=== PATIENT | female | born 1955 | race Caucasian/White ===

== ENCOUNTER 2016-06-20 13:56 | Emergency (ER) | payer OTHER ==
[~2016-06-20 13:56] MED LIST: ACET50TA PO; CLOP75TA2 PO; GLIM2TA PO; IBUP600T26 PO; LIPI10TA PO; METF500T PO; PERC7.5T12 PO; VENTAER IN; flonase nasal spray; nexium
--- NOTE | 2016-06-20 15:31 | EDDOCDS ---
Physician Documentation [facility] Name: Rosalva Rushing Age: 60 yrs Sex: Female : 1955 Arrival Date: 06/20/2016 Time: 13:56 Bed 10 Private MD: Disposition: 06/20/16 15:13 Patient has left against medical advice. Impression: Procedure and treatment not carried out due to patient leaving prior to being seen by health care provider. - Patients states they are going to Home/Self Care. - Condition is Good. Medication Reconciliation, Local Pharmacy Hours form. Follow up: Emergency Department; When: Call to arrange an appointment; Reason: Continuance of care. - Problem is an ongoing problem. - Symptoms have improved. - Notes: Patient left prior to MD evaluation. I offered to see her immediately, the patient refused to stay for lab work, EKG, or HPI or examination. Historical: - Allergies: Aspirin (Swelling); PENICILLINS (Swelling); - Home Meds: 1. atenolol 25 mg Oral tab 1 tab once daily 2. atorvastatin 20 mg oral tab 1 tab once daily 3. metformin 1,000 mg Oral tab 1 tab daily 4. Plavix 75 mg Oral tab 1 tab once daily - PMHx: Diabetes - NIDDM: uncontrolled; Hypercholesterolemia; Myocardial infarction; Vertigo; - PSHx: Cholecystectomy; Appendectomy; Cataract Surgery- Bilateral; Tubal ligation; - Social history: Smoking status: Patient uses tobacco products, light tobacco smoker. No barriers to communication noted. - : The pt / caregiver states he / she is on anticoagulants: Plavix. Home medication list is obtained from the patient. - Exposure Risk Screening:: None identified. Vital Signs: 06/20 14:40 Weight 105.23 kg / 231.99 lbs; Height 5 ft. 8 in. (172.72 cm); mb9 14:42 BP 139 / 68; Pulse 87; Resp 17; Temp 97.6(TE); Pulse Ox 99% ; mb9 14:40 Body Mass Index 35.27 (105.23 kg, 172.72 cm) mb9 MDM: 14:59 IV Saline Lock ordered. fg 14:59 Orthostatic VS ordered. fg 14:59 NS 0.9% 500 ml IV at bolus once ordered. fg 14:59 CBC with Diff Ordered. EDMS 14:59 Basic Metabolic Profile Ordered. EDMS 15:00 ECG WITH READING ER PHYS+CARDIAG ordered. EDMS Signatures: Dispatcher [employer] EDMS Estevan DaleRN RN mb9 Casandra Pop MD MD fg MTDD
--- NOTE | 2016-06-20 15:31 | EDDOCDS ---
Nurse's Notes [facility] Name: Rosalva Rushing Age: 60 yrs Sex: Female : 1955 Arrival Date: 06/20/2016 Time: 13:56 Bed 10 Private MD: Diagnosis: Procedure and treatment not carried out due to patient leaving prior to being seen by health care provider Presentation: 06/20 14:10 Presenting complaint: Patient states: "I went to get up and call an ambulance for my mb9 grandson and I stood up and got dizzy and my eyes went fuzzy". Suicide/Homicide risk assessment- the patient denies having any suicidal and/or homicidal ideations and does not present with any other emotional, behavioral or mental health complaints. Status: Patient is not a family services worker or dependent. Transition of care: patient was not received from another setting of care. 14:10 Method Of Arrival: Ambulance mb9 14:10 Acuity: ALANNA Level 3 mb9 Triage Assessment: 14:38 General: Appears obese, unkempt, Behavior is fussy. Pain: Denies pain. Pt Declines HIV mb9 testing. Cardiovascular: Heart tones S1 S2 present Pulses are 1+ in right radial artery and left radial artery. Respiratory: Airway is patent Respiratory effort is even, unlabored. Historical: - Allergies: Aspirin (Swelling); PENICILLINS (Swelling); - Home Meds: 1. atenolol 25 mg Oral tab 1 tab once daily 2. atorvastatin 20 mg oral tab 1 tab once daily 3. metformin 1,000 mg Oral tab 1 tab daily 4. Plavix 75 mg Oral tab 1 tab once daily - PMHx: Diabetes - NIDDM: uncontrolled; Hypercholesterolemia; Myocardial infarction; Vertigo; - PSHx: Cholecystectomy; Appendectomy; Cataract Surgery- Bilateral; Tubal ligation; - Social history: Smoking status: Patient uses tobacco products, light tobacco smoker. No barriers to communication noted. - : The pt / caregiver states he / she is on anticoagulants: Plavix. Home medication list is obtained from the patient. - Exposure Risk Screening:: None identified. Assessment: 15:27 General: When this RN went in to start pt's IV and draw blood pt states, "That's it I mb9 want to leave.". . Vital Signs: 14:40 Weight 105.23 kg; Height 5 ft. 8 in. (172.72 cm); mb9 14:42 BP 139 / 68; Pulse 87; Resp 17; Temp 97.6(TE); Pulse Ox 99% ; mb9 14:40 Body Mass Index 35.27 (105.23 kg, 172.72 cm) mb9 Vitals: 14:42 Log In Time N/A - ambulance arrival. mb9 ED Course: 13:57 Patient visited by Therese Coffey PCA. ar3 13:57 Asia Ross,RN is Primary Nurse. ar3 13:57 Patient moved to Waiting ar3 13:57 Patient moved to 10 ar3 14:33 Triage Initiated mb9 14:36 Casandra Pop MD is Attending Physician. fg 14:53 Patient visited by Casandra Pop MD. fg Order Results: There are currently no results for this order. Outcome: 15:13 Patient left against medical advice. fg 15:29 LWOT With Intervention: feels better refusal of services form is completed and placed mb9 in pts record. Notification of LWOT status is reported to the Charge Nurse, the Sourcing Manager, the ED Provider. 15:30 Patient left the ED. mb9 Signatures: Therese Coffey PCA SHOT CORE DRILL OPERATOR ar3 Estevan Dale RN RN mb9 Casandra Pop MD MD fg MTDD
--- NOTE | 2016-06-22 16:31 | EDDOCDS ---
Physician Documentation [facility] Name: Rosalva Rushing Age: 60 yrs Sex: Female : 1955 Arrival Date: 06/20/2016 Time: 13:56 Bed 10 Private MD: Disposition: 06/20/16 15:13 Patient has left against medical advice. Impression: Procedure and treatment not carried out due to patient leaving prior to being seen by health care provider. - Patients states they are going to Home/Self Care. - Condition is Good. Medication Reconciliation, Local Pharmacy Hours form. Follow up: Emergency Department; When: Call to arrange an appointment; Reason: Continuance of care. - Problem is an ongoing problem. - Symptoms have improved. - Notes: Patient left prior to MD evaluation. I offered to see her immediately, the patient refused to stay for lab work, EKG, or HPI or examination. Historical: - Allergies: Aspirin (Swelling); PENICILLINS (Swelling); - Home Meds: 1. atenolol 25 mg Oral tab 1 tab once daily 2. atorvastatin 20 mg oral tab 1 tab once daily 3. metformin 1,000 mg Oral tab 1 tab daily 4. Plavix 75 mg Oral tab 1 tab once daily - PMHx: Diabetes - NIDDM: uncontrolled; Hypercholesterolemia; Myocardial infarction; Vertigo; - PSHx: Cholecystectomy; Appendectomy; Cataract Surgery- Bilateral; Tubal ligation; - Social history: Smoking status: Patient uses tobacco products, light tobacco smoker. No barriers to communication noted. - : The pt / caregiver states he / she is on anticoagulants: Plavix. Home medication list is obtained from the patient. - Exposure Risk Screening:: None identified. Vital Signs: 06/20 14:40 Weight 105.23 kg / 231.99 lbs; Height 5 ft. 8 in. (172.72 cm); mb9 14:42 BP 139 / 68; Pulse 87; Resp 17; Temp 97.6(TE); Pulse Ox 99% ; mb9 14:40 Body Mass Index 35.27 (105.23 kg, 172.72 cm) mb9 MDM: 14:59 IV Saline Lock ordered. fg 14:59 Orthostatic VS ordered. fg 14:59 NS 0.9% 500 ml IV at bolus once ordered. fg 14:59 CBC with Diff Ordered. EDMS 14:59 Basic Metabolic Profile Ordered. EDMS 15:00 ECG WITH READING ER PHYS+CARDIAG ordered. EDMS 15:50 Financial registration complete. [facility] 06/21 12:34 Refusal of Services was scanned into MEDHOST and attached to record. Signatures: Dispatcher [employer] EDMS Niecy Dsouza, Reg Reg gb Brit Fenton [facility] Estevan DaleRN RN mb9 Casandra Pop MD MD fg Chart Complete MTDD
--- NOTE | 2016-06-22 16:31 | EDDOCDS ---
Physician Documentation [facility] Name: Rosalva Rushing Age: 60 yrs Sex: Female : 1955 Arrival Date: 06/20/2016 Time: 13:56 Bed 10 Private MD: Disposition: 06/20/16 15:13 Patient has left against medical advice. Impression: Procedure and treatment not carried out due to patient leaving prior to being seen by health care provider. - Patients states they are going to Home/Self Care. - Condition is Good. Medication Reconciliation, Local Pharmacy Hours form. Follow up: Emergency Department; When: Call to arrange an appointment; Reason: Continuance of care. - Problem is an ongoing problem. - Symptoms have improved. - Notes: Patient left prior to MD evaluation. I offered to see her immediately, the patient refused to stay for lab work, EKG, or HPI or examination. Historical: - Allergies: Aspirin (Swelling); PENICILLINS (Swelling); - Home Meds: 1. atenolol 25 mg Oral tab 1 tab once daily 2. atorvastatin 20 mg oral tab 1 tab once daily 3. metformin 1,000 mg Oral tab 1 tab daily 4. Plavix 75 mg Oral tab 1 tab once daily - PMHx: Diabetes - NIDDM: uncontrolled; Hypercholesterolemia; Myocardial infarction; Vertigo; - PSHx: Cholecystectomy; Appendectomy; Cataract Surgery- Bilateral; Tubal ligation; - Social history: Smoking status: Patient uses tobacco products, light tobacco smoker. No barriers to communication noted. - : The pt / caregiver states he / she is on anticoagulants: Plavix. Home medication list is obtained from the patient. - Exposure Risk Screening:: None identified. Vital Signs: 06/20 14:40 Weight 105.23 kg / 231.99 lbs; Height 5 ft. 8 in. (172.72 cm); mb9 14:42 BP 139 / 68; Pulse 87; Resp 17; Temp 97.6(TE); Pulse Ox 99% ; mb9 14:40 Body Mass Index 35.27 (105.23 kg, 172.72 cm) mb9 MDM: 14:59 IV Saline Lock ordered. fg 14:59 Orthostatic VS ordered. fg 14:59 NS 0.9% 500 ml IV at bolus once ordered. fg 14:59 CBC with Diff Ordered. EDMS 14:59 Basic Metabolic Profile Ordered. EDMS 15:00 ECG WITH READING ER PHYS+CARDIAG ordered. EDMS 15:50 Financial registration complete. [facility] 06/21 12:34 Refusal of Services was scanned into MEDHOST and attached to record. Signatures: Dispatcher [employer] EDMS Niecy Dsouza, Reg Reg gb Brit Fenton [facility] Estevan DaleRN RN mb9 Casandra Pop MD MD fg Chart Complete MTDD
--- NOTE | 2016-06-22 16:31 | EDDOCDS ---
Nurse's Notes [facility] Name: Rosalva Rushing Age: 60 yrs Sex: Female : 1955 Arrival Date: 06/20/2016 Time: 13:56 Bed 10 Private MD: Diagnosis: Procedure and treatment not carried out due to patient leaving prior to being seen by health care provider Presentation: 06/20 14:10 Presenting complaint: Patient states: "I went to get up and call an ambulance for my mb9 grandson and I stood up and got dizzy and my eyes went fuzzy". Suicide/Homicide risk assessment- the patient denies having any suicidal and/or homicidal ideations and does not present with any other emotional, behavioral or mental health complaints. Status: Patient is not a cooler servicer or dependent. Transition of care: patient was not received from another setting of care. 14:10 Method Of Arrival: Ambulance mb9 14:10 Acuity: ALANNA Level 3 mb9 Triage Assessment: 14:38 General: Appears obese, unkempt, Behavior is fussy. Pain: Denies pain. Pt Declines HIV mb9 testing. Cardiovascular: Heart tones S1 S2 present Pulses are 1+ in right radial artery and left radial artery. Respiratory: Airway is patent Respiratory effort is even, unlabored. Historical: - Allergies: Aspirin (Swelling); PENICILLINS (Swelling); - Home Meds: 1. atenolol 25 mg Oral tab 1 tab once daily 2. atorvastatin 20 mg oral tab 1 tab once daily 3. metformin 1,000 mg Oral tab 1 tab daily 4. Plavix 75 mg Oral tab 1 tab once daily - PMHx: Diabetes - NIDDM: uncontrolled; Hypercholesterolemia; Myocardial infarction; Vertigo; - PSHx: Cholecystectomy; Appendectomy; Cataract Surgery- Bilateral; Tubal ligation; - Social history: Smoking status: Patient uses tobacco products, light tobacco smoker. No barriers to communication noted. - : The pt / caregiver states he / she is on anticoagulants: Plavix. Home medication list is obtained from the patient. - Exposure Risk Screening:: None identified. Assessment: 15:27 General: When this RN went in to start pt's IV and draw blood pt states, "That's it I mb9 want to leave.". . Vital Signs: 14:40 Weight 105.23 kg; Height 5 ft. 8 in. (172.72 cm); mb9 14:42 BP 139 / 68; Pulse 87; Resp 17; Temp 97.6(TE); Pulse Ox 99% ; mb9 14:40 Body Mass Index 35.27 (105.23 kg, 172.72 cm) mb9 Vitals: 14:42 Log In Time N/A - ambulance arrival. mb9 ED Course: 13:57 Patient visited by Therese Coffey PCA. ar3 13:57 Asia Ross,RN is Primary Nurse. ar3 13:57 Patient moved to Waiting ar3 13:57 Patient moved to 10 ar3 14:33 Triage Initiated mb9 14:36 Casandra Pop MD is Attending Physician. fg 14:53 Patient visited by Casandra Pop MD. fg 06/21 12:34 Refusal of Services was scanned into [employer] and attached to record. gb Attachments: 12:34 Refusal of Services gb Order Results: Outcome: 06/20 15:13 Patient left against medical advice. fg 15:29 LWOT With Intervention: feels better refusal of services form is completed and placed mb9 in pts record. Notification of LWOT status is reported to the Charge Nurse, the Product Support Manager, the ED Provider. 15:30 Patient left the ED. mb9 Signatures: Niecy Dsouza, Reg Reg gb Therese Coffey PCA PCA ar3 Estevan Dale,RN RN mb9 Casandra Pop MD MD fg Chart Complete MTDD
== END 2016-06-20 15:30 | disposition left against medical advice (07) ==
LOC: M ED 13:56
DX: Z53.21 Procedure and treatment not carried out due to patient leaving prior to being seen by health care provider (principal)

== ENCOUNTER 2016-07-10 13:48 | Emergency (ER) | payer OTHER ==
[~2016-07-10] VITALS: Ht 172.7 cm; Wt 103.4 kg
[2016-07-10] MEDS ORDERED: LEVO75TA4 PO (14:00)
[2016-07-10] MEDS ORDERED: PLAV75TA38 PO (14:01)
[2016-07-10] MEDS ORDERED: AMLO2.5T PO (14:01)
[2016-07-10] MEDS ORDERED: ATOR1TAB21 PO (14:02)
[2016-07-10] MEDS ORDERED: ATEN25TA PO (14:02)
[2016-07-10 17:18] LABS: BASO % 0.4 % (0.0-1.0); EOS # 0.1 K/mm3 (0.0-0.50); EOS % 1.1 % (0.0-3.0); LARGE UNSTAINED CELL # 0.2 K/mm3 (0.0-0.4); LARGE UNSTAINED CELL % 2.9 % (0.0-4.0); LYMPH # 3.2 K/mm3 (1.5-4.5); LYMPH % 42.8 % (24.0-44.0); MEAN CORPUSCULAR HEMOGLOBIN 31.8 pg (27.0-33.0); MEAN CORPUSCULAR HGB CONC 33.3 g/dl (32.0-36.5); MEAN CORPUSCULAR VOLUME 95.5 fl (80.0-96.0); MONO # 0.3 K/mm3 (0.0-0.8); MONO % 3.9 % (0.0-5.0); NEUTROPHILS # 3.6 K/mm3 (1.8-7.7); NEUTROPHILS % 48.9 % (36.0-66.0); PLATELET COUNT, AUTOMATED 200 k/mm3 (150-450); RED CELL DISTRIBUTION WIDTH 12.6 % (11.5-14.5); WHITE BLOOD COUNT 7.4 K/mm3 (4.0-10.0)
[2016-07-10 17:42] LABS: ALBUMIN/GLOBULIN RATIO 0.89 (1.00-1.93); ALKALINE PHOSPHATASE 103 U/L (45-117); ALT/SGPT 29 U/L (12-78); ANION GAP 7 MEQ/L (8-16); AST/SGOT 22 U/L (15-37); BILIRUBIN,DIRECT 0.2 MG/DL (0.0-0.2); BILIRUBIN,TOTAL 0.5 MG/DL (0.2-1.0); BLOOD UREA NITROGEN 10 MG/DL (7-18); CALCIUM LEVEL 9.3 MG/DL (8.8-10.2); CARBON DIOXIDE LEVEL 29 MEQ/L (21-32); CHLORIDE LEVEL 109 MEQ/L (98-107); CREATININE FOR GFR 0.85 MG/DL (0.55-1.02); GLOMERULAR FILTRATION RATE > 60.0 (>45); GLUCOSE, FASTING 92 MG/DL (80-110); POTASSIUM SERUM 4.1 MEQ/L (3.5-5.1); SODIUM LEVEL 145 MEQ/L (136-145); TOTAL PROTEIN 8.5 GM/DL (6.4-8.2)
[2016-07-10 18:48] VITALS: BP 118/67
--- NOTE | 2016-07-11 10:18 | REP ---
REASON: Weight loss and nausea. COMPARISON: 10/20/2015 TWO-VIEW CHEST: COMPARISON: No priors. FINDINGS: The superior mediastinal structures are midline. The cardiac silhouette is unremarkable in size, shape, and position. The diaphragmatic surfaces of the lungs are regular, and the costophrenic angles are clear. The pulmonary mejias are clear. The imaged osseous structures are intact. IMPRESSION: There is no acute cardiopulmonary disease. No change from the prior exam. Signed by Jacob Eastman DO 07/11/2016 10:28 A
--- NOTE | 2016-07-11 10:19 | REP ---
REASON FOR EXAM: Weight loss and nausea. PRIORS: None. Mild asymmetric hip joint spaces are present without prominent marginal osteophytosis, fracture, or dislocation. There is minimal bilateral buttressing. There are degenerative changes seen involving the imaged portion of the spine and sacroiliac joints. IMPRESSION: Chronic changes. Signed by Jacob Eastman DO 07/11/2016 10:28 A
--- NOTE | 2016-07-11 10:21 | REP ---
REASON: Weight loss and nausea. FINDINGS: KUB shows the intestinal gas pattern to be nonspecific. The organ silhouettes insofar as delineated are unremarkable. There is no evidence of free intraperitoneal air. IMPRESSION: Nonspecific. Degenerative change is seen involving the spine. Signed by Jacob Eastman DO 07/11/2016 10:28 A
== END 2016-07-10 18:57 | disposition home or self-care (01) ==
LOC: M ED 15:40
DX: R63.4 Abnormal weight loss (principal); R11.0 Nausea; I10 Essential (primary) hypertension; I50.9 Heart failure, unspecified; Z79.899 Other long term (current) drug therapy; Z79.02 Long term (current) use of antithrombotics/antiplatelets; Z88.0 Allergy status to penicillin; Z88.6 Allergy status to analgesic agent; F17.210 Nicotine dependence, cigarettes, uncomplicated

== ENCOUNTER 2016-08-14 10:35 | Emergency (ER) | payer OTHER ==
[~2016-08-14] VITALS: Ht 175.3 cm; Wt 104.3 kg
[~2016-08-14 10:35] MED LIST changes: +AMLO2.5T PO; +ATEN25TA PO; +ATOR1TAB21 PO; +LEVO75TA4 PO; +PLAV75TA38 PO
[2016-08-14] MEDS ORDERED: LEXA1TAB PO (10:48)
[2016-08-14] MEDS ORDERED: JANU25TA PO (10:48)
[2016-08-14] MEDS ORDERED: LORazepam 1 MG TAB PO STA (11:55)
[2016-08-14] MEDS ORDERED: ATIV1TAB7 PO (11:58)
[2016-08-14 12:05] VITALS: BP 132/65
== END 2016-08-14 12:26 | disposition home or self-care (01) ==
LOC: M ED 12:24
DX: F41.1 Generalized anxiety disorder (principal); I25.2 Old myocardial infarction; E11.9 Type 2 diabetes mellitus without complications; I10 Essential (primary) hypertension; F17.200 Nicotine dependence, unspecified, uncomplicated; Z79.02 Long term (current) use of antithrombotics/antiplatelets; Z79.84 Long term (current) use of oral hypoglycemic drugs; Z79.899 Other long term (current) drug therapy; Z88.6 Allergy status to analgesic agent; Z88.0 Allergy status to penicillin

== ENCOUNTER → 2016-10-07 | Outpatient (CLI) | payer OTHER ==
[~2016-10-07] MED LIST changes: +ACET30TAB PO; +ALBU17IN; +AMLO25TA PO; +ATIV1TAB7 PO; +BUSP1TAB PO; +JANU25TA PO; +LEXA1TAB PO; +VITA50003; +ZOFR4TAB3 PO
--- NOTE | 2016-10-07 11:26 | REP ---
HIDA SCAN: Following the intravenous administration of 5.9 mCi of technetium 99m mebrofenin, multiple images of the right upper quadrant are performed every 5 minutes for a period of 1 hour. There is biliary to bowel transit seen at 10 minutes post injection. Radiotracer flows distally into the small bowel on subsequent images. I see no definite biliary leak or biloma. Signed by Pavel Juarez MD 10/07/2016 03:34 P
== END ==
LOC: M RAD 08:27
PROVIDERS: ATTEND Surgery
DX: R93.5 Abnormal findings on diagnostic imaging of other abdominal regions, including retroperitoneum (principal)

== ENCOUNTER 2016-10-08 16:49 | Emergency (ER) | payer OTHER ==
[~2016-10-08] VITALS: Ht 172.7 cm; Wt 105.2 kg
[~2016-10-08 16:49] MED LIST changes: -ACET30TAB PO; -ALBU17IN; -AMLO25TA PO; -BUSP1TAB PO; -VITA50003; -ZOFR4TAB3 PO
[2016-10-08] MEDS ORDERED: VITA50003 (17:00)
[2016-10-08] MEDS ORDERED: BUSP1TAB PO (17:00)
[2016-10-08] MEDS ORDERED: AMLO25TA PO (17:00)
[2016-10-08] MEDS ORDERED: ALBU17IN (17:00)
--- NOTE | 2016-10-08 18:10 | REP ---
Left humerus two views : There is no fracture or dislocation. Mineralization and joint spaces are normal. There are no calcifications or foreign bodies. Impression: Negative left humerus . Signed by Pavel Montanez MD 10/08/2016 06:01 P
--- NOTE | 2016-10-08 18:22 | REP ---
Left ribs and PA chest: Comparison is the PA and lateral chest dated 03/21/2017. Left ribs four views: There is no rib fracture or other rib abnormality. PA chest: There is a minor zone of discoid atelectasis adjacent to the cardiac apex. There is no pneumothorax, hemothorax or pulmonary contusion. Cardiac size is normal. The minh, mediastinum, bony thorax are unremarkable. Impression: Essentially negative PA chest. Signed by Pavel Montanez MD 10/08/2016 06:14 P
--- NOTE | 2016-10-08 18:24 | REP ---
Left tibia-fibula four views: There is no acute fracture or dislocation. I suspect an old healed fracture of the distal fibular shaft. Mineralization is normal. No calcifications or foreign bodies. Signed by Pavel Montanez MD 10/08/2016 06:15 P
[2016-10-08] MEDS ORDERED: ACET30TAB PO ×2 (18:39→18:54)
[2016-10-08 18:51] VITALS: BP 136/79
[2016-10-08] MEDS ORDERED: ZOFR4TAB3 PO (18:54)
== END 2016-10-08 18:58 | disposition home or self-care (01) ==
LOC: EDBD 16:49 → M ED 18:20
DX: S40.022A Contusion of left upper arm, initial encounter (principal); S80.12XA Contusion of left lower leg, initial encounter; S20.20XA Contusion of thorax, unspecified, initial encounter; W18.09XA Striking against other object with subsequent fall, initial encounter; Y92.019 Unspecified place in single-family (private) house as the place of occurrence of the external cause; Y93.E2 Activity, laundry; Y99.9 Unspecified external cause status; I50.9 Heart failure, unspecified; E78.00 Pure hypercholesterolemia, unspecified; E11.9 Type 2 diabetes mellitus without complications; F41.9 Anxiety disorder, unspecified; F17.200 Nicotine dependence, unspecified, uncomplicated; Z79.02 Long term (current) use of antithrombotics/antiplatelets; Z90.49 Acquired absence of other specified parts of digestive tract; Z90.89 Acquired absence of other organs

== ENCOUNTER → 2016-10-20 | Outpatient (CLI) | payer OTHER ==
[~2016-10-20] MED LIST changes: +ACET30TAB PO; +ALBU17IN; +AMLO25TA PO; +BUSP1TAB PO; +VITA50003; +ZOFR4TAB3 PO
[2016-10-20 12:47] LABS: BASO % 0.6 % (0.0-1.0); EOS # 0.1 K/mm3 (0.0-0.50); EOS % 1.3 % (0.0-3.0); LYMPH # 1.8 K/mm3 (1.5-4.5); LYMPH % 29.7 % (24.0-44.0); MEAN CORPUSCULAR HEMOGLOBIN 32.5 pg (27.0-33.0); MEAN CORPUSCULAR HGB CONC 34.1 g/dl (32.0-36.5); MEAN CORPUSCULAR VOLUME 95.3 fl (80.0-96.0); MONO # 0.3 K/mm3 (0.0-0.8); MONO % 5.3 % (0.0-5.0); NEUTROPHILS # 3.6 K/mm3 (1.8-7.7); NEUTROPHILS % 61.8 % (36.0-66.0); RED CELL DISTRIBUTION WIDTH 13.3 % (11.5-14.5); WHITE BLOOD COUNT 5.8 K/mm3 (4.0-10.0)
[2016-10-20 21:59] LABS: ALBUMIN 3.6 GM/DL (3.2-5.2); ALBUMIN/GLOBULIN RATIO 0.88 (1.00-1.93); ALKALINE PHOSPHATASE 86 U/L (45-117); ALT/SGPT 25 U/L (12-78); ANION GAP 8 MEQ/L (8-16); AST/SGOT 17 U/L (15-37); BILIRUBIN,TOTAL 0.3 MG/DL (0.2-1.0); BLOOD UREA NITROGEN 9 MG/DL (7-18); CALCIUM LEVEL 9.1 MG/DL (8.8-10.2); CARBON DIOXIDE LEVEL 27 MEQ/L (21-32); CHLORIDE LEVEL 109 MEQ/L (98-107); CHOLESTEROL LEVEL 169 MG/DL (<200); CREATININE FOR GFR 0.88 MG/DL (0.55-1.02); FREE T4 1.15 NG/DL (0.76-1.46); GLOMERULAR FILTRATION RATE > 60.0 (>45); GLUCOSE, FASTING 114 MG/DL (80-110); POTASSIUM SERUM 4.2 MEQ/L (3.5-5.1); SODIUM LEVEL 144 MEQ/L (136-145); TOTAL PROTEIN 7.7 GM/DL (6.4-8.2); TRIGLYCERIDES LEVEL 110 MG/DL (<150)
== END ==
LOC: M LAB 11:24
PROVIDERS: ATTEND Nurse Practitioner Adult Health
DX: E11.9 Type 2 diabetes mellitus without complications (principal)

== ENCOUNTER → 2016-11-29 | Outpatient (CLI) | payer OTHER ==
[~2016-11-29] MED LIST changes: +CETI10TA PO; +IBUP-1022 PO; -IBUP600T26 PO; +PLAV1TAB2 PO; -PLAV75TA38 PO; +STIO1AER IN; +VITA1CAP40; -VITA50003
--- NOTE | 2016-11-29 19:30 | REP ---
MRI left shoulder without contrast: 11/29/2016: Comparison: X-ray 04/17/2016, MRI 08/10/2013. Clinical history: Painful left shoulder. Technique: Coronal T1 and fat-suppressed T2, axial fat suppressed T2 and 2D medic fat suppressed axial images along with sagittal fat suppressed T2 sequences. Over the greater tuberosity of the humeral head near its insertional footprint of the supraspinatus tendon shows a partial tear. There is a downsloping acromion in the bursal surface fraying and supraspinatus tendinopathy tendinosis but no full-thickness tear, complete tear, retraction of the tendon nor significant atrophy of the muscle. There is hypertrophic spurring of the AC joint more from the clavicle indenting the musculotendinous junction of the rotator cuff. The coracoclavicular and coracohumeral ligament humeral ligaments are intact. I do not see a significant glenohumeral joint effusion, trace amount of fluid in the subcoracoid bursa just above the level of the subscapularis. That muscle and tendon were grossly intact. The infraspinatus and teres minor muscles and tendons grossly intact. Degenerative changes of the glenohumeral joint are noted with chondromalacia and osteoarthritis. No definite effusion. Biceps tendon is seated in its groove. No gross evidence of a biceps labral tear, biceps tenosynovitis or a Hill-Sachs deformity. There is again some increased signal linear character along the superior aspect of the glenoid labrum that may reflect undermining of the labrum from the mild slap tear. This is a similar picture the previous study. The small loose body suggested in the subcoracoid bursa on the previous study cannot be confirmed today. Spinal glenoid notch shows no fluid collection or mass. Impression: 1. Hypertrophic AC joint spurring indenting musculotendinous junction and peripheral acromial spur also contributing to bursal surface fraying of the supraspinatus. There is tendinopathy tendinosis and a partial tear at the insertional footprint of the supraspinatus tendon on the greater tuberosity humeral head . Full-thickness tear, retraction of the tendon or atrophy of the muscle. 2. Coracoclavicular and coracohumeral ligaments are intact. 3. Trace fluid subcoracoid bursa. I cannot confirm no loose bodies in the joint or bursal recesses. 4. Subscapularis, infraspinatus and teres minor tendons and muscles without definite tear. Some mild tendinosis tendinopathy may be present. 5. Biceps tendon without a tear. The biceps labral complex appears intact. There is still some undermining of the superior labrum suggestive that may reflect slap tear. Signed by Yunior Alfredo MD 11/29/2016 09:29 P
--- NOTE | 2016-11-30 11:55 | REP ---
MR BRAIN WITHOUT CONTRAST: HISTORY: Left leg pain. Areas of increased signal intensity on T2-weighted images are present in the periventricular and subcortical white matter and anders. This represents small vessel ischemic disease. Several punctate areas of increased signal intensity on T2-weighted images are present in the left cerebellum. This may represent a small developmental venous anomaly. There is no intraparenchymal hemorrhage, infarct, mass, or midline shift. The ventricular system is normal in appearance. There is no extracerebral collection. Mucosal thickening is present in the ethmoid and maxillary sinuses. IMPRESSION: Small vessel ischemic disease. Signed by Naldo Dahl MD 11/30/2016 12:25 P
== END ==
LOC: M PLARAD 08:50
PROVIDERS: ATTEND Physician Assistant
DX: M25.512 Pain in left shoulder (principal)

== ENCOUNTER → 2017-01-25 | Outpatient (REF) | payer OTHER ==
[2017-01-26 08:08] LABS: BLOOD UREA NITROGEN 11 MG/DL (7-18); GLOMERULAR FILTRATION RATE > 60.0 (>45)
== END ==
LOC: M LAB 12-25 08:28
PROVIDERS: ATTEND Nurse Practitioner Adult Health
DX: E11.9 Type 2 diabetes mellitus without complications (principal)

== ENCOUNTER → 2017-01-25 | Outpatient (CLI) | payer OTHER ==
[2017-01-25 09:03] LABS: INR 0.92
[2017-01-25 09:20] LABS: ALBUMIN 3.7 GM/DL (3.2-5.2); ALBUMIN/GLOBULIN RATIO 0.93 (1.00-1.93); ALKALINE PHOSPHATASE 77 U/L (45-117); ALT/SGPT 28 U/L (12-78); AST/SGOT 16 U/L (15-37); BILIRUBIN,DIRECT 0.1 MG/DL (0.0-0.2); BILIRUBIN,TOTAL 0.4 MG/DL (0.2-1.0); PERCENT SATURATION 17.3 % (13.2-45.0); TOTAL IRON BINDING CAPACITY 318 UG/DL (250-450); TOTAL PROTEIN 7.7 GM/DL (6.4-8.2)
== END ==
LOC: M LAB 08:07
PROVIDERS: ATTEND Internal Medicine Gastroenterology
DX: K74.60 Unspecified cirrhosis of liver (principal)

== ENCOUNTER 2017-02-02 23:23 | Emergency (ER) | payer OTHER ==
[~2017-02-02] VITALS: Ht 172.7 cm; Wt 109.1 kg
[~2017-02-02 23:23] MED LIST changes: -CETI10TA PO; -STIO1AER IN
[2017-02-16] MEDS ORDERED: ATOR1TAB21 PO (16:31)
[2017-02-16] MEDS ORDERED: CETI10TA PO (16:31)
[2017-02-16] MEDS ORDERED: BUSP1TAB PO (16:31)
[2017-02-16] MEDS ORDERED: STIO1AER IN (16:46)
== END 2017-02-02 23:58 | disposition home or self-care (01) ==
LOC: EDBD 23:23 → M ED 23:23
DX: R11.2 Nausea with vomiting, unspecified (principal); J44.9 Chronic obstructive pulmonary disease, unspecified; F41.9 Anxiety disorder, unspecified; F17.210 Nicotine dependence, cigarettes, uncomplicated; Z79.899 Other long term (current) drug therapy; Z88.8 Allergy status to other drugs, medicaments and biological substances; Z88.0 Allergy status to penicillin

== ENCOUNTER → 2017-02-09 | Outpatient (CLI) | payer OTHER ==
[~2017-02-09] MED LIST changes: +CETI10TA PO; +STIO1AER IN
[2017-02-09 14:46] LABS: BASO % 0.5 % (0.0-1.0); EOS # 0.1 10^3/uL (0.0-0.50); EOS % 1.1 % (0.0-3.0); IMMATURE GRANULOCYTE % 0.5 % (0-0); LYMPH # 2.5 10^3/uL (1.5-4.5); MEAN CORPUSCULAR HEMOGLOBIN 32.3 pg (27.0-33.0); MEAN CORPUSCULAR HGB CONC 34.2 g/dl (32.0-36.5); MEAN CORPUSCULAR VOLUME 94.5 fl (80.0-96.0); MONO # 0.4 10^3/uL (0.0-0.8); MONO % 5.6 % (0.0-5.0); NEUTROPHILS # 4.4 10^3/uL (1.8-7.7); NEUTROPHILS % 59.3 % (36.0-66.0); PLATELET COUNT, AUTOMATED 171 10^3/uL (150-450); RED CELL DISTRIBUTION WIDTH 13.4 % (11.5-14.5); WHITE BLOOD COUNT 7.5 10^3/uL (4.0-10.0)
[2017-02-09 15:14] LABS: FOLLICLE STIMULATING HORMONE 46.1 mIU/mL; LUTEINIZING HORMONE 42.9 mIU/mL
[2017-02-09 15:18] LABS: ALBUMIN 3.7 GM/DL (3.2-5.2); ALBUMIN/GLOBULIN RATIO 0.86 (1.00-1.93); ALKALINE PHOSPHATASE 83 U/L (45-117); ALT/SGPT 27 U/L (12-78); ANION GAP 7 MEQ/L (8-16); AST/SGOT 18 U/L (15-37); BILIRUBIN,TOTAL 0.7 MG/DL (0.2-1.0); BLOOD UREA NITROGEN 12 MG/DL (7-18); CALCIUM LEVEL 9.3 MG/DL (8.8-10.2); CARBON DIOXIDE LEVEL 28 MEQ/L (21-32); CHLORIDE LEVEL 108 MEQ/L (98-107); CHOLESTEROL LEVEL 169 MG/DL (<200); CREATININE FOR GFR 0.81 MG/DL (0.55-1.02); FREE T4 1.09 NG/DL (0.76-1.46); GLOMERULAR FILTRATION RATE > 60.0 (>45); GLUCOSE, FASTING 101 MG/DL (80-110); POTASSIUM SERUM 4.1 MEQ/L (3.5-5.1); SODIUM LEVEL 143 MEQ/L (136-145); TRIGLYCERIDES LEVEL 109 MG/DL (<150)
== END ==
LOC: M LAB 12:22
PROVIDERS: ATTEND Nurse Practitioner Adult Health
DX: R42 Dizziness and giddiness (principal)

== ENCOUNTER → 2017-02-19 | Outpatient (CLI) | payer OTHER ==
--- NOTE | 2017-02-19 13:56 | REP ---
PA and lateral chest: Comparisons 03/21/2017. There is no evidence of vascular engorgement or pulmonary edema. Lung mejias are clear and unchanged. Cardiac size is normal. The minh, mediastinum, and bony thorax are unremarkable. There is a small right upper lobe granuloma, unchanged from the prior study of 05/08/2013. Impression: Essentially negative PA and lateral chest. No interval change. Signed by Pavel Montanez MD 02/19/2017 01:47 P
--- NOTE | 2017-02-19 13:57 | REP ---
AP pelvis and right hip: AP pelvis: There is degenerative disc disease and scoliosis convex left in the lower lumbar spine. The sacroiliac articulations are unremarkable. Left hip is unremarkable. There is mild joint space narrowing of the right hip. Right hip is otherwise unremarkable. There are calcifications in the pelvis on the right. Right hip two views: There is mild joint space narrowing. There is no femoral head deformity. There are no calcifications or foreign bodies. No fracture or dislocation. Impression: Mild joint space narrowing compatible with early arthropathy. Signed by Pavel Montanez MD 02/19/2017 01:49 P
--- NOTE | 2017-02-19 13:58 | REP ---
Right knee five views: There is a small osteophyte in the superior margin of the patella compatible with mild osteoarthritis. There is no effusion. Mineralization joint spaces otherwise are unremarkable. There are no calcifications or foreign bodies. Impression: Mild patellofemoral osteoarthritis. Signed by Pavel Montanez MD 02/19/2017 01:50 P
== END ==
LOC: M RAD 12:14
PROVIDERS: ATTEND Nurse Practitioner Adult Health
DX: J81.1 Chronic pulmonary edema (principal); R10.31 Right lower quadrant pain; R10.2 Pelvic and perineal pain; W19.XXXD Unspecified fall, subsequent encounter

== ENCOUNTER 2017-06-16 14:56 | Emergency (ER) | payer OTHER ==
[2017-06-16] MEDS: NS 500 ML IV (15:15)
[2017-06-16 15:19] LABS: BASO % 0.6 % (0.0-1.0); EOS # 0.1 10^3/uL (0.0-0.50); EOS % 1.6 % (0.0-3.0); HEMATOCRIT 43.9 % (36.0-47.0); HEMOGLOBIN 15.3 g/dl (12.0-16.0); IMMATURE GRANULOCYTE % 0.3 % (0-3.0); LYMPH # 2.6 10^3/uL (1.5-4.5); LYMPH % 40.3 % (24.0-44.0); MEAN CORPUSCULAR HGB CONC 34.9 g/dl (32.0-36.5); MEAN CORPUSCULAR VOLUME 91.8 fl (80.0-96.0); MONO # 0.4 10^3/uL (0.0-0.8); MONO % 6.1 % (0.0-5.0); NEUTROPHILS # 3.3 10^3/uL (1.8-7.7); NEUTROPHILS % 51.1 % (36.0-66.0); PLATELET COUNT, AUTOMATED 166 10^3/uL (150-450); RED BLOOD COUNT 4.78 10^6/uL (4.00-5.40); RED CELL DISTRIBUTION WIDTH 13.1 % (11.5-14.5); WHITE BLOOD COUNT 6.4 10^3/uL (4.0-10.0)
[2017-06-16 15:43] LABS: ALBUMIN 3.7 GM/DL (3.2-5.2); ALKALINE PHOSPHATASE 82 U/L (45-117); ALT/SGPT 29 U/L (12-78); ANION GAP 8 MEQ/L (8-16); AST/SGOT 19 U/L (7-37); BILIRUBIN,TOTAL 0.4 MG/DL (0.2-1.0); BLOOD UREA NITROGEN 11 MG/DL (7-18); CALCIUM LEVEL 8.7 MG/DL (8.8-10.2); CARBON DIOXIDE LEVEL 25 MEQ/L (21-32); CHLORIDE LEVEL 111 MEQ/L (98-107); CREATININE FOR GFR 1.08 MG/DL (0.55-1.30); GLOMERULAR FILTRATION RATE 54.5 (>45); GLUCOSE, FASTING 167 MG/DL (70-100); POTASSIUM SERUM 3.7 MEQ/L (3.5-5.1); SODIUM LEVEL 144 MEQ/L (136-145); TOTAL PROTEIN 7.4 GM/DL (6.4-8.2)
[2017-06-16] MEDS ORDERED: ISOVUE-370 76% 100ML VIAL (Q9967) As Ordered (16:17)
[2017-06-16 17:59] LABS: ESTIMATED AVERAGE GLUCOSE 140 MG/DL (60-110); HEMOGLOBIN A1c 6.5 %
== END 2017-06-16 18:00 | disposition home or self-care (01) ==
LOC: M ED 14:56
DX: B34.9 Viral infection, unspecified (principal); E11.9 Type 2 diabetes mellitus without complications; I10 Essential (primary) hypertension; Z88.0 Allergy status to penicillin; Z88.6 Allergy status to analgesic agent; Z79.899 Other long term (current) drug therapy; Z79.84 Long term (current) use of oral hypoglycemic drugs
CPT/HCPCS: Q9967

== ENCOUNTER → 2017-07-21 | Outpatient (CLI) | payer OTHER ==
[2017-07-21 08:12] LABS: BASO # 0.1 10^3/uL (0.0-0.2); BASO % 0.9 % (0.0-1.0); EOS # 0.2 10^3/uL (0.0-0.50); EOS % 3.1 % (0.0-3.0); HEMATOCRIT 46.3 % (36.0-47.0); HEMOGLOBIN 15.6 g/dl (12.0-16.0); IMMATURE GRANULOCYTE % 0.4 % (0-3.0); LYMPH # 2.5 10^3/uL (1.5-4.5); LYMPH % 45.8 % (24.0-44.0); MEAN CORPUSCULAR HEMOGLOBIN 31.5 pg (27.0-33.0); MEAN CORPUSCULAR HGB CONC 33.7 g/dl (32.0-36.5); MEAN CORPUSCULAR VOLUME 93.3 fl (80.0-96.0); MONO # 0.5 10^3/uL (0.0-0.8); MONO % 9.4 % (0.0-5.0); NEUTROPHILS # 2.2 10^3/uL (1.8-7.7); NEUTROPHILS % 40.4 % (36.0-66.0); PLATELET COUNT, AUTOMATED 153 10^3/uL (150-450); RED BLOOD COUNT 4.96 10^6/uL (4.00-5.40); RED CELL DISTRIBUTION WIDTH 13.3 % (11.5-14.5); WHITE BLOOD COUNT 5.5 10^3/uL (4.0-10.0)
[2017-07-21 08:39] LABS: ALBUMIN 3.6 GM/DL (3.2-5.2); ALBUMIN/GLOBULIN RATIO 0.86 (1.00-1.93); ALKALINE PHOSPHATASE 90 U/L (45-117); ALT/SGPT 28 U/L (12-78); ANION GAP 7 MEQ/L (8-16); AST/SGOT 17 U/L (7-37); BILIRUBIN,TOTAL 0.4 MG/DL (0.2-1.0); BLOOD UREA NITROGEN 8 MG/DL (7-18); CALCIUM LEVEL 8.6 MG/DL (8.8-10.2); CARBON DIOXIDE LEVEL 25 MEQ/L (21-32); CHLORIDE LEVEL 110 MEQ/L (98-107); CHOLESTEROL LEVEL 152 MG/DL (<200); CHOLESTEROL RISK RATIO 3.707 (<5); CREATININE FOR GFR 0.91 MG/DL (0.55-1.30); FREE T4 1.05 NG/DL (0.76-1.46); GLOMERULAR FILTRATION RATE > 60.0 (>45); GLUCOSE, FASTING 141 MG/DL (70-100); HDL CHOLESTEROL 41 MG/DL (>40); LDL CHOLESTEROL 83.2 MG/DL (<100); NON-HDL-C 111 MG/DL; SODIUM LEVEL 142 MEQ/L (136-145); TOTAL PROTEIN 7.8 GM/DL (6.4-8.2); TRIGLYCERIDES LEVEL 139 MG/DL (<150)
[2017-07-21 08:46] LABS: ESTIMATED AVERAGE GLUCOSE 157 MG/DL (60-110); HEMOGLOBIN A1c 7.1 %
[2017-07-21 09:40] LABS: TOTAL 25(OH) VITAMIN D 23.1 NG/ML (30.0-100.0)
== END ==
LOC: M LAB 07:23
DX: R79.89 Other specified abnormal findings of blood chemistry (principal); E55.9 Vitamin D deficiency, unspecified; E11.9 Type 2 diabetes mellitus without complications; Z79.899 Other long term (current) drug therapy; K76.0 Fatty (change of) liver, not elsewhere classified
CPT/HCPCS: 84443

== ENCOUNTER → 2017-10-24 | Outpatient (CLI) | payer OTHER ==
[2017-10-24 10:02] LABS: BASO % 0.7 % (0.0-1.0); EOS # 0.1 10^3/uL (0.0-0.50); EOS % 2.3 % (0.0-3.0); HEMATOCRIT 46.3 % (36.0-47.0); HEMOGLOBIN 15.7 g/dl (12.0-15.5); IMMATURE GRANULOCYTE % 0.4 % (0-3.0); LYMPH # 2.5 10^3/uL (1.5-4.5); LYMPH % 44.7 % (24.0-44.0); MEAN CORPUSCULAR HEMOGLOBIN 31.7 pg (27.0-33.0); MEAN CORPUSCULAR HGB CONC 33.9 g/dl (32.0-36.5); MEAN CORPUSCULAR VOLUME 93.5 fl (80.0-96.0); MONO # 0.5 10^3/uL (0.0-0.8); MONO % 9.5 % (0.0-5.0); NEUTROPHILS # 2.4 10^3/uL (1.8-7.7); NEUTROPHILS % 42.4 % (36.0-66.0); PLATELET COUNT, AUTOMATED 177 10^3/uL (150-450); RED BLOOD COUNT 4.95 10^6/uL (4.00-5.40); RED CELL DISTRIBUTION WIDTH 13.3 % (11.5-14.5); WHITE BLOOD COUNT 5.7 10^3/uL (4.0-10.0)
[2017-10-24 10:34] LABS: TOTAL 25(OH) VITAMIN D 55.3 NG/ML (30.0-100.0)
[2017-10-24 10:36] LABS: ALBUMIN 3.5 GM/DL (3.2-5.2); ALBUMIN/GLOBULIN RATIO 0.85 (1.00-1.93); ALKALINE PHOSPHATASE 82 U/L (45-117); ALT/SGPT 31 U/L (12-78); ANION GAP 7 MEQ/L (8-16); AST/SGOT 18 U/L (7-37); BILIRUBIN,TOTAL 0.5 MG/DL (0.2-1.0); BLOOD UREA NITROGEN 8 MG/DL (7-18); CALCIUM LEVEL 8.7 MG/DL (8.8-10.2); CARBON DIOXIDE LEVEL 28 MEQ/L (21-32); CHLORIDE LEVEL 108 MEQ/L (98-107); CHOLESTEROL LEVEL 161 MG/DL (<200); CHOLESTEROL RISK RATIO 3.577 (<5); CREATININE FOR GFR 0.82 MG/DL (0.55-1.30); FREE T4 1.04 NG/DL (0.76-1.46); GLOMERULAR FILTRATION RATE > 60.0 (>45); GLUCOSE, FASTING 114 MG/DL (70-100); HDL CHOLESTEROL 45 MG/DL (>40); LDL CHOLESTEROL 89.2 MG/DL (<100); NON-HDL-C 116 MG/DL; POTASSIUM SERUM 4.2 MEQ/L (3.5-5.1); SODIUM LEVEL 143 MEQ/L (136-145); TOTAL PROTEIN 7.6 GM/DL (6.4-8.2); TRIGLYCERIDES LEVEL 134 MG/DL (<150)
[2017-10-24 10:53] LABS: ESTIMATED AVERAGE GLUCOSE 148 MG/DL (60-110); HEMOGLOBIN A1c 6.8 %
== END ==
LOC: M LAB 08:54
DX: E11.9 Type 2 diabetes mellitus without complications (principal)
CPT/HCPCS: 84443

== ENCOUNTER 2018-02-05 07:22 | Emergency (ER) | payer OTHER ==
[2018-02-05] MEDS: ALBUTEROL SULFATE 2.5 MG/0.5 ML INH NEB SOLN NEB (07:47)
== END 2018-02-05 08:21 | disposition home or self-care (01) ==
LOC: M ED 07:22
DX: J32.9 Chronic sinusitis, unspecified (principal); I11.0 Hypertensive heart disease with heart failure; I50.9 Heart failure, unspecified; E11.9 Type 2 diabetes mellitus without complications; I25.2 Old myocardial infarction; K21.9 Gastro-esophageal reflux disease without esophagitis; E03.9 Hypothyroidism, unspecified; F41.9 Anxiety disorder, unspecified; F32.9 Major depressive disorder, single episode, unspecified; G47.33 Obstructive sleep apnea (adult) (pediatric); Z87.442 Personal history of urinary calculi; Z87.09 Personal history of other diseases of the respiratory system; F17.200 Nicotine dependence, unspecified, uncomplicated
CPT/HCPCS: 94640

== ENCOUNTER 2019-07-01 11:29 | Emergency (ER) | payer MEDICARE, OTHER ==
[~2019-07-01] VITALS: Ht 172.7 cm; Wt 121.0 kg
[~2019-07-01 11:29] MED LIST changes: +ACET-716 PO; -ACET30TAB PO; -ACET50TA PO; +ALBU83IN NEB; -AMLO2.5T PO; +AMLO2.5T3 PO; -GLIM2TA PO; +GLIM2TAB29 PO; +MAPA500T17 PO; +NEBUMIS9 XX; +SITA50TAB; -VITA1CAP40; +VITA50005; +ZITHTAB PO; +ZOFR4TAB14 PO; -ZOFR4TAB3 PO
[2019-07-01 12:01] LABS: BASO % 0.7 % (0.0-1.0); EOS # 0.1 10^3/uL (0.0-0.5); EOS % 1.7 % (0.0-3.0); HEMATOCRIT 47.4 % (36.0-47.0); LYMPH # 2.1 10^3/uL (1.5-5.0); LYMPH % 35.3 % (24.0-44.0); MEAN CORPUSCULAR HEMOGLOBIN 31.6 pg (27.0-33.0); MEAN CORPUSCULAR HGB CONC 33.8 g/dl (32.0-36.5); MEAN CORPUSCULAR VOLUME 93.7 fl (80.0-96.0); MONO # 0.5 10^3/uL (0.0-0.8); MONO % 8.9 % (0.0-5.0); NEUTROPHILS # 3.2 10^3/uL (1.5-8.5); NEUTROPHILS % 53.1 % (36.0-66.0); PLATELET COUNT, AUTOMATED 148 10^3/uL (150-450); RED BLOOD COUNT 5.06 10^6/uL (4.00-5.40)
[2019-07-01 12:48] LABS: BLOOD UREA NITROGEN 11 MG/DL (7-18); C REACTIVE PROTEIN QUANTITATIV < 0.30 MG/DL (0.00-0.30); CALCIUM LEVEL 9.2 MG/DL (8.8-10.2); CARBON DIOXIDE LEVEL 27 MEQ/L (21-32); CHLORIDE LEVEL 107 MEQ/L (98-107); CK-MB VALUE MASS 3.2 NG/ML (<3.6); CPK CREATINE PHOSPHOKINASE 373 U/L (26-192); CREATININE FOR GFR 0.84 MG/DL (0.55-1.30); FREE T4 0.95 NG/DL (0.76-1.46); GLOMERULAR FILTRATION RATE > 60.0 (>45); GLUCOSE, FASTING 140 MG/DL (70-100); MB/CK RELATIVE INDEX 0.86 (< OR =4); NT-PRO BNP 186 PG/ML (<125); POTASSIUM SERUM 4.1 MEQ/L (3.5-5.1); SODIUM LEVEL 139 MEQ/L (136-145); TROPONIN I < 0.02 NG/ML (< 0.10)
[2019-07-01 13:16] LABS: ERYTHROCYTE SEDIMENTATION RATE 23 mm/hr (0-30)
--- NOTE | 2019-07-01 13:44 | REP ---
Left upper extremity duplex Doppler venous ultrasound. Real time compression and duplex Doppler evaluation of the left upper extremity deep venous system is performed. The left subclavian, jugular, axillary, brachial, basilic and cephalic veins are fully compressible where accessible with transducer pressure, and demonstrate no intraluminal thrombus and normal venous waveforms. There is no evidence of deep venous thrombosis. Impression: No evidence of deep venous thrombosis of the left upper extremity deep vein system. Electronically Signed by Pavel Juarez MD 07/01/2019 01:35 P
--- NOTE | 2019-07-01 13:51 | REP ---
CT BRAIN WITHOUT IV CONTRAST: CT brain performed without IV contrast. There is mild atrophy. There is no midline shift or mass effect. Juarez-white differentiation is well maintained. There is mild periventricular small vessel ischemic change, likely chronic in nature. There is no intracranial hemorrhage. There is no extra-axial fluid collection. There are mild vascular calcifications in the carotid siphons. IMPRESSION: No acute intracranial hemorrhage. Mild atrophy and small vessel ischemic changes. Electronically Signed by Pavel Juarez MD 07/01/2019 06:39 P
--- NOTE | 2019-07-01 13:54 | REP ---
CHEST, SINGLE VIEW: Single view of the chest is performed. COMPARISON: 06/16/2017 There is no acute infiltrate or pulmonary edema. There is mild cardiomegaly. There is calcification of the thoracic aorta. There are degenerative changes of the spine. IMPRESSION: Cardiomegaly. No evidence of acute pulmonary disease. Electronically Signed by Pavel Juarez MD 07/01/2019 06:39 P
[2019-07-01] MEDS ORDERED: VENTAER INH (14:14)
[2019-07-01] MEDS ORDERED: PRED20TA PO (14:14)
[2019-07-01] MEDS ORDERED: MUCI600T31 PO (14:14)
[2019-07-01] MEDS ORDERED: predniSONE 20 MG TAB PO ONE (14:30)
[2019-07-01 14:37] VITALS: BP 130/57
--- NOTE | 2019-07-01 20:49 | ECGEPIP ---
[facility] - ED Test Date: 2019-07-01 Pat Name: SHAHIDA NUNEZ Department: Room: - Gender: Female Owner Professional Engineer: : 1955 Requested By: JASON Irene Order Number: [id number] Reading MD: Elpidio Rodriguez Measurements Intervals Samaria Rate: 80 P: 20 OK: 162 QRS: 42 QRSD: 96 T: 27 QT: 373 QTc: 431 Interpretive Statements SINUS RHYTHM POOR R WAVE PROGRESSION SIMILAR TO 06/16/17 Electronically Signed on 07-01-2019 20:48:39 EST by Elpidio Rodriguez
[2019-07-03 14:17] LABS: ANTINUCLEAR ANTIBODIES DIRECT Negative (Negative)
== END 2019-07-01 14:46 | disposition home or self-care (01) ==
LOC: M ED 11:29
DX: J20.9 Acute bronchitis, unspecified (principal); H53.8 Other visual disturbances; R22.32 Localized swelling, mass and lump, left upper limb; I51.7 Cardiomegaly; G31.9 Degenerative disease of nervous system, unspecified; E11.9 Type 2 diabetes mellitus without complications; I25.2 Old myocardial infarction; E78.5 Hyperlipidemia, unspecified; K21.9 Gastro-esophageal reflux disease without esophagitis; J44.1 Chronic obstructive pulmonary disease with (acute) exacerbation; E03.9 Hypothyroidism, unspecified; F17.210 Nicotine dependence, cigarettes, uncomplicated; Z88.0 Allergy status to penicillin; Z79.51 Long term (current) use of inhaled steroids; Z79.84 Long term (current) use of oral hypoglycemic drugs; Z79.899 Other long term (current) drug therapy

== ENCOUNTER → 2019-07-03 | Outpatient (CLI) | payer MEDICARE, OTHER ==
[~2019-07-03] MED LIST changes: +MUCI600T31 PO; +PRED20TA PO; +VENTAER INH
--- NOTE | 2019-07-03 11:38 | REP ---
Digital diagnostic bilateral mammography with CAD, 3-D tomography, and focused left axillary ultrasound: History: Left breast pain times 6 months. Recent left lateral chest and arm bruising without antecedent trauma history. Comparison mammography is reviewed from July 28, 2016 and December 11, 2014. Findings: Scattered fibroglandular elements are seen bilaterally. There are is linearly aligned vascular calcification in the upper outer quadrant of the right breast. This is more extensive but is felt to be vascular and benign. No suspicious microcalcifications are observed. No dominant soft tissue density is seen. No architectural distortion is noted. Breast parenchymal markings are unchanged from the 2016 and 2014 prior study otherwise. No axillary adenopathy is appreciated. 3-D tomography shows no additional abnormality. At my request and in view of the left chest and left arm bruising, a left axillary ultrasound was requested and performed. Normal appearing lymph nodes are seen in the left axilla with fatty centers and a very thin and normal cortical margin. Two lymph nodes are identified measuring 1.5 x 0.6 x 1.0 cm and 0.9 x 0.6 x 0.9 cm. There is a cutaneous mole in the left axilla which shows hypoechoic texture in the dermis. No evidence of mass or cyst is seen. No sonographically suspicious finding. Impression: BIRADS 2: BI-RADS/ACR category 2 mammogram. Benign Findings. BIRADS category 2 benign findings. Clinical followup is advised. Repeat screening mammography recommended 1 year. This mammogram was interpreted with the aid of an FDA-approved computer-aided detection system. The patient states she had a clinical breast exam in June 2019. The patient letter being requested is m2. This patient's estimated Tyrer-Cuzick lifetime risk assessment for the breast cancer is 3.8 %.
== END ==
LOC: M WHC 08:58
PROVIDERS: ATTEND Nurse Practitioner Women's Health
DX: N64.4 Mastodynia (principal)
CPT/HCPCS: 76642; 77066; G0279

== ENCOUNTER 2019-10-11 08:43 | Emergency (ER) | payer MEDICARE, OTHER ==
[~2019-10-11] VITALS: Ht 172.7 cm; Wt 117.8 kg
[2019-10-11] MEDS ORDERED: JANU100T (08:50)
[2019-10-11] MEDS ORDERED: IBUPROFEN 600MG TAB PO ONE (09:15)
--- NOTE | 2019-10-11 09:50 | REP ---
Two-view chest: 10/11/2019. Indication: Dyspnea. Comparison: September 13, 2018. Findings: The lungs are clear. Right upper lobe granuloma is redemonstrated. Left lower lobe scarring is stable. There is no pleural effusion or pneumothorax. The cardiac silhouettes is unremarkable. Impression: Clear lungs. Electronically Signed by Nish Sandoval DO 10/11/2019 09:41 A
[2019-10-11 10:04] LABS: BASO % 0.7 % (0.0-1.0); EOS # 0.1 10^3/uL (0.0-0.5); EOS % 1.7 % (0.0-3.0); HEMATOCRIT 46.9 % (36.0-47.0); LYMPH % 34.4 % (24.0-44.0); MEAN CORPUSCULAR HEMOGLOBIN 32.1 pg (27.0-33.0); MEAN CORPUSCULAR HGB CONC 34.1 g/dl (32.0-36.5); MONO # 0.5 10^3/uL (0.0-0.8); MONO % 8.3 % (0.0-5.0); NEUTROPHILS # 3.1 10^3/uL (1.5-8.5); NEUTROPHILS % 54.6 % (36.0-66.0); PLATELET COUNT, AUTOMATED 133 10^3/uL (150-450); RED BLOOD COUNT 4.99 10^6/uL (4.00-5.40); WHITE BLOOD COUNT 5.8 10^3/uL (4.0-10.0)
[2019-10-11 10:28] LABS: ALBUMIN 3.8 GM/DL (3.2-5.2); ALT/SGPT 33 U/L (12-78); BILIRUBIN,DIRECT 0.3 MG/DL (0.0-0.2); BILIRUBIN,TOTAL 0.9 MG/DL (0.2-1.0); BLOOD UREA NITROGEN 15 MG/DL (7-18); CALCIUM LEVEL 9.1 MG/DL (8.8-10.2); CARBON DIOXIDE LEVEL 24 MEQ/L (21-32); CHLORIDE LEVEL 108 MEQ/L (98-107); CK-MB VALUE MASS 2.7 NG/ML (<3.6); CPK CREATINE PHOSPHOKINASE 416 U/L (26-192); CREATININE FOR GFR 0.84 MG/DL (0.55-1.30); GLOMERULAR FILTRATION RATE > 60.0 (>45); GLUCOSE, FASTING 150 MG/DL (70-100); LIPASE 87 U/L (73-393); MB/CK RELATIVE INDEX 0.65 (< OR =4); SODIUM LEVEL 139 MEQ/L (136-145); TOTAL PROTEIN 7.9 GM/DL (6.4-8.2); TROPONIN I < 0.02 NG/ML (< 0.10)
[2019-10-11 10:53] VITALS: BP 118/71
--- NOTE | 2019-10-11 21:30 | ECGEPIP ---
[facility] - ED Test Date: 2019-10-11 Pat Name: SHAHIDA NUNEZ Department: Room: - Gender: Female Glass Fitter: : 1955 Requested By: JAMMIE Cordoba PA-C Order Number: [id number] Reading MD: Elpidio Rodriguez Measurements Intervals [place] Rate: 78 P: 58 CT: 166 QRS: 54 QRSD: 93 T: 51 QT: 383 QTc: 437 Interpretive Statements SINUS RHYTHM SIMILAR TO 07/01/19 Electronically Signed on 10-11-2019 21:30:28 EDT by Elpidio Rodriguez
== END 2019-10-11 11:15 | disposition home or self-care (01) ==
LOC: M ED 08:43
DX: R05 Cough (principal); M25.511 Pain in right shoulder; I10 Essential (primary) hypertension; E11.9 Type 2 diabetes mellitus without complications; F17.200 Nicotine dependence, unspecified, uncomplicated; Z79.51 Long term (current) use of inhaled steroids; Z79.899 Other long term (current) drug therapy; Z79.84 Long term (current) use of oral hypoglycemic drugs; Z88.0 Allergy status to penicillin

== ENCOUNTER → 2019-11-08 | Outpatient (CLI) | payer MEDICARE, OTHER ==
[~2019-11-08] MED LIST changes: +JANU100T
--- NOTE | 2019-11-21 11:31 | SLEEPCENT ---
DATE OF PROCEDURE: 11/12/2019 ORDERED BY: CARLOS MANUEL Morrow Nocturnal polysomnography was performed for re-titration of pressure therapy in this patient with a history of obstructive sleep apnea syndrome continues to experience some sleep related symptoms. For testing a ResMed Quattro full-face mask of medium size was used; 8 cm of water pressure were applied to the circuit and the lights were extinguished. 7 hours and 42 minutes of data were reviewed. There were 341 minutes of sleep identified. Sleep latency was prolonged at 25 minutes. Rapid eye movement (REM) latency was prolonged at 199 minutes. Sleep architecture improved on optimal pressure therapy. There were 4 REM cycles noted. Overall sleep efficiency was 76.8%. The electrocardiogram showed a sinus rhythm with an average heart rate of 62 beats per minute. Electroencephalogram (EEG) showed some coarsening in background. No focal events were seen and there were normal waveforms for awake and sleep stages. Respiratory events were found best palliated at CPAP pressure of +10, and remaining measures of sleep physiology were normal. IMPRESSION: Obstructive sleep apnea syndrome (G47.33). RECOMMENDATIONS: Nightly use of pressure therapy 10 cm of water.
== END ==
LOC: M SLEEP 20:00
PROVIDERS: ATTEND Nurse Practitioner Family
DX: G47.33 Obstructive sleep apnea (adult) (pediatric) (principal)

== ENCOUNTER → 2020-06-24 | Outpatient (REF) | payer MEDICARE, OTHER ==
[2020-06-24 11:19] LABS: HEMATOCRIT 47.1 % (36.0-47.0); HEMOGLOBIN 15.7 g/dl (12.0-15.5); MEAN CORPUSCULAR HEMOGLOBIN 32.1 pg (27.0-33.0); MEAN CORPUSCULAR HGB CONC 33.3 g/dl (32.0-36.5); MEAN CORPUSCULAR VOLUME 96.3 fl (80.0-96.0); PLATELET COUNT, AUTOMATED 148 10^3/uL (150-450); RED BLOOD COUNT 4.89 10^6/uL (4.00-5.40); WHITE BLOOD COUNT 4.9 10^3/uL (4.0-10.0)
[2020-06-24 11:59] LABS: ALBUMIN 3.7 GM/DL (3.2-5.2); ALT/SGPT 36 U/L (12-78); BILIRUBIN,TOTAL 0.7 MG/DL (0.2-1.0); BLOOD UREA NITROGEN 11 MG/DL (7-18); CALCIUM LEVEL 9.8 MG/DL (8.8-10.2); CARBON DIOXIDE LEVEL 28 MEQ/L (21-32); CHLORIDE LEVEL 105 MEQ/L (98-107); CHOLESTEROL LEVEL 141 MG/DL (<200); CHOLESTEROL RISK RATIO 3.065 (<5); CREATININE FOR GFR 0.85 MG/DL (0.55-1.30); FERRITIN 318 NG/ML (8-252); GLOMERULAR FILTRATION RATE > 60.0 (>45); GLUCOSE, FASTING 112 MG/DL (70-100); HDL CHOLESTEROL 46 MG/DL (>40); IRON (FE) 85 UG/DL (50-170); LDL CHOLESTEROL 75 MG/DL (<100); NON-HDL-C 95 MG/DL; PERCENT SATURATION 28.7 % (13.2-45.0); SODIUM LEVEL 141 MEQ/L (136-145); TOTAL IRON BINDING CAPACITY 296 UG/DL (250-450); TOTAL PROTEIN 7.6 GM/DL (6.4-8.2); TRIGLYCERIDES LEVEL 102 MG/DL (<150)
[2020-06-24 12:06] LABS: CREATININE, URINE 62.4 MG/DL; MALB URINE SIEMENS < 5.0 MG/L
[2020-06-24 13:18] LABS: HEMOGLOBIN A1c 6.3 %
== END ==
LOC: M SFHCPLAZ 08:49
PROVIDERS: ATTEND Nurse Practitioner Adult Health
DX: E78.2 Mixed hyperlipidemia (principal); E11.9 Type 2 diabetes mellitus without complications; E03.9 Hypothyroidism, unspecified; K02.9 Dental caries, unspecified; Z86.2 Personal history of diseases of the blood and blood-forming organs and certain disorders involving the immune mechanism
CPT/HCPCS: 36415; 80053; 80061; 82043; 82728; 83036; 83550; 84443; 85027; G0463

== ENCOUNTER → 2021-06-11 | Outpatient (CLI) | payer MEDICARE, OTHER ==
[2021-06-11 12:03] LABS: ALBUMIN 3.7 GM/DL (3.2-5.2); ALT/SGPT 37 U/L (12-78); BILIRUBIN,TOTAL 0.4 MG/DL (0.2-1.0); BLOOD UREA NITROGEN 11 MG/DL (7-18); CALCIUM LEVEL 9.3 MG/DL (8.8-10.2); CARBON DIOXIDE LEVEL 27 MEQ/L (21-32); CHLORIDE LEVEL 107 MEQ/L (98-107); CHOLESTEROL LEVEL 182 MG/DL (<200); CHOLESTEROL RISK RATIO 4.232 (<5); CREATININE FOR GFR 0.84 MG/DL (0.55-1.30); GLOMERULAR FILTRATION RATE > 60.0 (>45); GLUCOSE, FASTING 142 MG/DL (70-100); HDL CHOLESTEROL 43 MG/DL (>40); LDL CHOLESTEROL 111 MG/DL (<100); NON-HDL-C 139 MG/DL; POTASSIUM SERUM 4.2 MEQ/L (3.5-5.1); SODIUM LEVEL 139 MEQ/L (136-145); TOTAL PROTEIN 7.5 GM/DL (6.4-8.2); TRIGLYCERIDES LEVEL 140 MG/DL (<150)
[2021-06-11 12:15] LABS: HEPATITIS B SURFACE ANTIGEN NEGATIVE (NEGATIVE)
[2021-06-11 12:42] LABS: HEPATITIS B CORE ANTIBODY IGM NEGATIVE (NEGATIVE); HEPATITIS C VIRUS ABY INDEX 0.1 INDEX (<0.8)
[2021-06-11 13:12] LABS: HEMOGLOBIN A1c 6.8 %
== END ==
LOC: M PLALAB 07:43
PROVIDERS: ATTEND Nurse Practitioner Adult Health
DX: E78.2 Mixed hyperlipidemia (principal); E11.9 Type 2 diabetes mellitus without complications; E03.9 Hypothyroidism, unspecified

== ENCOUNTER → 2021-10-05 | Outpatient (CLI) | payer MEDICARE, OTHER ==
[~2021-10-05] MED LIST changes: +ALBU2.5V10 NEB; -ALBU83IN NEB
== END ==
LOC: M PLAIMG 11:21
PROVIDERS: ATTEND Internal Medicine Pulmonary Disease
DX: R91.8 Other nonspecific abnormal finding of lung field (principal)

== ENCOUNTER → 2022-02-22 | Outpatient (CLI) | payer MEDICARE, OTHER ==
[2022-02-22 10:40] LABS: HEMATOCRIT 47.2 % (36.0-47.0); HEMOGLOBIN 15.3 g/dl (12.0-15.5); MEAN CORPUSCULAR HEMOGLOBIN 31.9 pg (27.0-33.0); MEAN CORPUSCULAR HGB CONC 32.4 g/dl (32.0-36.5); MEAN CORPUSCULAR VOLUME 98.3 fl (80.0-96.0); PLATELET COUNT, AUTOMATED 154 10^3/uL (150-450); WHITE BLOOD COUNT 4.6 10^3/uL (4.0-10.0)
[2022-02-22 11:15] LABS: HEMOGLOBIN A1c 7.2 %
[2022-02-22 11:24] LABS: CHOLESTEROL RISK RATIO 4.136 (<5); THYROID STIMULATING HORMONE 3.76 uIU/ML (0.358-3.740)
== END ==
LOC: M PLALAB 08:30
PROVIDERS: ATTEND Nurse Practitioner Adult Health
DX: R10.2 Pelvic and perineal pain (principal); E11.9 Type 2 diabetes mellitus without complications; K02.9 Dental caries, unspecified; E03.9 Hypothyroidism, unspecified; E78.2 Mixed hyperlipidemia

== ENCOUNTER → 2022-04-19 | Outpatient (CLI) | payer MEDICARE, OTHER ==
[~2022-04-19] MED LIST changes: +CLOP75TA99 PO; -PLAV1TAB2 PO
== END ==
LOC: M PLAIMG 10:09
PROVIDERS: ATTEND Internal Medicine Pulmonary Disease
DX: R91.8 Other nonspecific abnormal finding of lung field (principal); J47.9 Bronchiectasis, uncomplicated

== ENCOUNTER → 2022-06-04 | Outpatient (REF) | payer MEDICARE, OTHER ==
[~2022-06-04] MED LIST changes: -JANU100T; +JANU100T PO; +ONDA-83 PO; -STIO1AER IN; +STIO1AER INH
== END ==
LOC: M SFHCWAGY 10:12
PROVIDERS: ATTEND Nurse Practitioner Family
DX: Z12.4 Encounter for screening for malignant neoplasm of cervix (principal); R87.610 Atypical squamous cells of undetermined significance on cytologic smear of cervix (ASC-US)

== ENCOUNTER → 2022-06-30 | Outpatient (CLI) | payer MEDICARE, OTHER ==
[~2022-06-30] MED LIST changes: +JANU100T; -JANU100T PO; -ONDA-83 PO; +STIO1AER IN; -STIO1AER INH
== END ==
LOC: M WHC 08:50
PROVIDERS: ATTEND Nurse Practitioner Family
DX: Z12.31 Encounter for screening mammogram for malignant neoplasm of breast (principal); R10.2 Pelvic and perineal pain

== ENCOUNTER 2022-08-18 09:44 | Day surgery (SDC) | payer MEDICARE, OTHER ==
[~2022-08-18] VITALS: Ht 172.7 cm; Wt 115.1 kg
[~2022-08-18 09:44] MED LIST changes: -JANU100T; +JANU100T PO; +LIDOCAINE 2% 100MG/5ML SDV (FOR ANES.) As Ordered ONE; +NS 1,000 ML IV ONE; +ONDA-83 PO; -STIO1AER IN; +STIO1AER INH; +propofoL 200 MG/20 ML VIAL As Ordered ONE
[2022-08-18] MEDS ORDERED: PHENYLephrine 500MCG 5ML (100MCG/ML) SYRINGE As Ordered ONE (11:06)
[2022-08-18] MEDS ORDERED: propofoL 200 MG/20 ML VIAL As Ordered ONE (11:33)
[2022-08-18 12:20] VITALS: BP 126/80
== END 2022-08-18 12:22 | disposition home or self-care (01) ==
LOC: M OPP 09:44
PROVIDERS: ATTEND Surgery
DX: Z12.11 Encounter for screening for malignant neoplasm of colon (principal); Z80.0 Family history of malignant neoplasm of digestive organs; D12.6 Benign neoplasm of colon, unspecified; K64.9 Unspecified hemorrhoids; G47.33 Obstructive sleep apnea (adult) (pediatric); Z99.89 Dependence on other enabling machines and devices; E11.9 Type 2 diabetes mellitus without complications; I25.2 Old myocardial infarction; I48.91 Unspecified atrial fibrillation; E03.9 Hypothyroidism, unspecified; K76.0 Fatty (change of) liver, not elsewhere classified; F17.200 Nicotine dependence, unspecified, uncomplicated; Z79.02 Long term (current) use of antithrombotics/antiplatelets; Z79.51 Long term (current) use of inhaled steroids; Z79.890 Hormone replacement therapy; Z79.899 Other long term (current) drug therapy; Z88.6 Allergy status to analgesic agent; Z88.0 Allergy status to penicillin; Z80.3 Family history of malignant neoplasm of breast
CPT/HCPCS: 45385; 87428; 88305; J2370

== ENCOUNTER → 2022-09-11 | Outpatient (CLI) | payer MEDICARE, OTHER ==
[~2022-09-11] MED LIST changes: -LIDOCAINE 2% 100MG/5ML SDV (FOR ANES.) As Ordered ONE; -NS 1,000 ML IV ONE; -propofoL 200 MG/20 ML VIAL As Ordered ONE
[2022-09-11 12:26] LABS: HEMOGLOBIN A1c 9.3 % (4.0-6.0)
[2022-09-11 12:32] LABS: CREATININE, URINE 104.8 MG/DL; MAU/CREAT RATIO 5.7 MCG/MG (0.0-30.0)
[2022-09-11 12:33] LABS: ALBUMIN 3.5 G/DL (3.2-5.2); ALKALINE PHOSPHATASE 92 U/L (46-116); ALT/SGPT 71 U/L (7.0-40); AST/SGOT 43 U/L (<34); BLOOD UREA NITROGEN 6 MG/DL (9-23); CALCIUM LEVEL 9.1 MG/DL (8.3-10.6); CARBON DIOXIDE LEVEL 25 MMOL/L (20-31); CHLORIDE LEVEL 103 MMOL/L (98-107); CHOLESTEROL LEVEL 178 MG/DL (<200); CHOLESTEROL RISK RATIO 5.11 (<5); CREATININE FOR GFR 0.69 MG/DL (0.55-1.30); GLOMERULAR FILTRATION RATE > 60.0 (>45); GLUCOSE, FASTING 241 MG/DL (74-106); HDL CHOLESTEROL 34.8 MG/DL (>40); LDL CHOLESTEROL 108.6 MG/DL (<100); NON-HDL-C 143.2 MG/DL; POTASSIUM SERUM 4.1 MMOL/L (3.5-5.1); SODIUM LEVEL 138 MMOL/L (136-145); TOTAL PROTEIN 7.1 G/DL (5.7-8.2); TRIGLYCERIDES LEVEL 173 MG/DL (<150)
[2022-09-11 12:35] LABS: THYROID STIMULATING HORMONE 2.307 uIU/ML (0.55-4.78)
== END ==
LOC: M LAB 11:27
PROVIDERS: ATTEND Nurse Practitioner Adult Health
DX: E78.2 Mixed hyperlipidemia (principal); E11.9 Type 2 diabetes mellitus without complications; E03.9 Hypothyroidism, unspecified; R10.32 Left lower quadrant pain

== ENCOUNTER → 2022-09-11 | Outpatient (CLI) | payer MEDICARE, OTHER ==
[2022-09-11 12:31] LABS: BLOOD UREA NITROGEN 6 MG/DL (9-23); CREATININE FOR GFR 0.69 MG/DL (0.55-1.30); GLOMERULAR FILTRATION RATE > 60.0 (>45)
== END ==
LOC: M LAB 11:30
PROVIDERS: ATTEND Surgery
DX: R10.32 Left lower quadrant pain (principal)

== ENCOUNTER → 2022-09-15 | Outpatient (CLI) | payer MEDICARE, OTHER ==
[~2022-09-15] MED LIST changes: +GASTROGRAFIN SOLUTION 30ML As Ordered ONE; +ISOVUE-370 76% 100ML VIAL As Ordered ONE
== END ==
LOC: M RAD 12:25
PROVIDERS: ATTEND Physician Assistant
DX: R10.32 Left lower quadrant pain (principal)
CPT/HCPCS: 74178; Q9963; Q9967

== ENCOUNTER 2022-10-14 15:14 | Emergency (ER) | payer MEDICARE, OTHER ==
[~2022-10-14] VITALS: Ht 172.7 cm; Wt 120.5 kg
[~2022-10-14 15:14] MED LIST changes: -GASTROGRAFIN SOLUTION 30ML As Ordered ONE; -ISOVUE-370 76% 100ML VIAL As Ordered ONE
[2022-10-14] MEDS ORDERED: ONDANSETRON 4MG 2ML VIAL IV ONE (15:55)
[2022-10-14] MEDS ORDERED: MORPHINE 4 MG/ML 1ML VIAL IV PRN (15:55)
[2022-10-14] MEDS ORDERED: NS 1,000 ML IV SCH (15:55)
[2022-10-14 16:29] LABS: BASO % 0.6 % (0.0-1.0); EOS # 0.1 10^3/uL (0.0-0.5); HEMATOCRIT 45.5 % (36.0-47.0); HEMOGLOBIN 15.4 g/dl (12.0-15.5); LYMPH # 1.7 10^3/uL (1.5-5.0); LYMPH % 33.4 % (24.0-44.0); MEAN CORPUSCULAR HEMOGLOBIN 32.6 pg (27.0-33.0); MEAN CORPUSCULAR HGB CONC 33.8 g/dl (32.0-36.5); MEAN CORPUSCULAR VOLUME 96.2 fl (80.0-96.0); MONO # 0.5 10^3/uL (0.0-0.8); MONO % 9.1 % (2.0-8.0); NEUTROPHILS # 2.7 10^3/uL (1.5-8.5); NEUTROPHILS % 54.5 % (36.0-66.0); PLATELET COUNT, AUTOMATED 127 10^3/uL (150-450); RED BLOOD COUNT 4.73 10^6/uL (4.00-5.40)
[2022-10-14 16:56] LABS: LIPASE 29 U/L (12-53)
[2022-10-14 16:58] LABS: ALBUMIN 3.4 G/DL (3.2-5.2); ALKALINE PHOSPHATASE 86 U/L (46-116); ALT/SGPT 51 U/L (7.0-40); AST/SGOT 37 U/L (<34); BILIRUBIN,DIRECT 0.3 MG/DL (<0.4); BILIRUBIN,TOTAL 0.7 MG/DL (0.3-1.2); BLOOD UREA NITROGEN 10 MG/DL (9-23); CALCIUM LEVEL 9.9 MG/DL (8.3-10.6); CARBON DIOXIDE LEVEL 27 MMOL/L (20-31); CHLORIDE LEVEL 106 MMOL/L (98-107); GLOMERULAR FILTRATION RATE > 60.0 (>45); GLUCOSE, FASTING 184 MG/DL (74-106); POTASSIUM SERUM 4.1 MMOL/L (3.5-5.1); SODIUM LEVEL 139 MMOL/L (136-145)
[2022-10-14] MEDS ORDERED: BUDE10.7 INH (18:10)
[2022-10-14] MEDS ORDERED: HOME MED LIST COMPLETE! XX SCH (18:15)
[2022-10-14] MEDS ORDERED: NIRMATRELVIR/RITONAVIR CO-PACK (EMERGENCY USE AUTH) PO SCH ×2 (18:30→21:00)
[2022-10-14 19:45] VITALS: BP 115/64; TEMP 98.3; O2SAT 97
== END 2022-10-14 19:48 | disposition home or self-care (01) ==
LOC: M ED 15:14
DX: U07.1 COVID-19 (principal); I25.2 Old myocardial infarction; G47.33 Obstructive sleep apnea (adult) (pediatric); E03.9 Hypothyroidism, unspecified; E78.5 Hyperlipidemia, unspecified; E11.9 Type 2 diabetes mellitus without complications; F17.200 Nicotine dependence, unspecified, uncomplicated; Z88.0 Allergy status to penicillin; Z88.6 Allergy status to analgesic agent; Z86.79 Personal history of other diseases of the circulatory system; Z79.52 Long term (current) use of systemic steroids; Z79.02 Long term (current) use of antithrombotics/antiplatelets; Z79.899 Other long term (current) drug therapy
CPT/HCPCS: 74176; 80048; 80076; 83605; 83690; 85025; 87486; 87581; 87633; 87798; 93005; 93041; 96361; 96374; 99285; J2405

== ENCOUNTER → 2022-12-10 | Outpatient (CLI) | payer MEDICARE, OTHER ==
[~2022-12-10] MED LIST changes: +BUDE10.7 INH
[2022-12-10 10:48] LABS: INR 1.12; PROTHROMBIN TIME 14.1 SECONDS (12.5-14.5)
[2022-12-10 10:49] LABS: PARTIAL THROMBOPLASTIN TIME 28.6 SECONDS (24.8-34.2)
[2022-12-10 11:12] LABS: HEMOGLOBIN A1c 8.4 % (4.0-6.0)
== END ==
LOC: M PLALAB 07:20
PROVIDERS: ATTEND Family Medicine
DX: K74.60 Unspecified cirrhosis of liver (principal)

== ENCOUNTER → 2023-05-19 | Outpatient (CLI) | payer MEDICARE, OTHER ==
[2023-05-19 18:20] LABS: HEMOGLOBIN A1c 11.7 % (4.0-6.0)
[2023-05-19 18:21] LABS: ALBUMIN 3.7 G/DL (3.2-5.2); ALKALINE PHOSPHATASE 107 U/L (46-116); ALT/SGPT 52 U/L (7.0-40); AST/SGOT 50 U/L (<34); BILIRUBIN,TOTAL 0.7 MG/DL (0.3-1.2); BLOOD UREA NITROGEN 9 MG/DL (9-23); CALCIUM LEVEL 9.9 MG/DL (8.3-10.6); CARBON DIOXIDE LEVEL 27 MMOL/L (20-31); CHLORIDE LEVEL 104 MMOL/L (98-107); CHOLESTEROL LEVEL 125 MG/DL (<200); CHOLESTEROL RISK RATIO 2.68 (<5); CREATININE FOR GFR 0.68 MG/DL (0.55-1.30); GLOMERULAR FILTRATION RATE > 60.0 (>45); GLUCOSE, FASTING 243 MG/DL (74-106); HDL CHOLESTEROL 46.5 MG/DL (>40); LDL CHOLESTEROL 56.3 MG/DL (<100); NON-HDL-C 78.5 MG/DL; POTASSIUM SERUM 4.1 MMOL/L (3.5-5.1); SODIUM LEVEL 136 MMOL/L (136-145); TOTAL PROTEIN 7.4 G/DL (5.7-8.2); TRIGLYCERIDES LEVEL 111 MG/DL (<150)
[2023-05-19 18:22] LABS: THYROID STIMULATING HORMONE 2.154 uIU/ML (0.55-4.78)
== END ==
LOC: M PLAIMG 15:23
PROVIDERS: ATTEND Nurse Practitioner Adult Health
DX: R68.89 Other general symptoms and signs (principal); E11.9 Type 2 diabetes mellitus without complications; E78.2 Mixed hyperlipidemia; K76.0 Fatty (change of) liver, not elsewhere classified

== ENCOUNTER → 2023-06-23 | Outpatient (CLI) | payer MEDICARE, OTHER | LOC: M RAD 09:48 | PROVIDERS: ATTEND Internal Medicine Pulmonary Disease | DX: Z12.2 Encounter for screening for malignant neoplasm of respiratory organs (principal); F17.218 Nicotine dependence, cigarettes, with other nicotine-induced disorders; R91.1 Solitary pulmonary nodule ==

== ENCOUNTER → 2023-10-04 | Outpatient (REF) | payer MEDICARE, OTHER | LOC: M SFHCPLAZ 13:38 | PROVIDERS: ATTEND Physician Assistant Medical | DX: R06.02 Shortness of breath (principal); J44.9 Chronic obstructive pulmonary disease, unspecified; J20.8 Acute bronchitis due to other specified organisms ==

== ENCOUNTER → 2023-10-06 | Outpatient (CLI) | payer MEDICARE, OTHER ==
[2023-10-06 11:59] LABS: BASO % 0.7 % (0.0-1.0); EOS # 0.1 10^3/uL (0.0-0.5); EOS % 1.5 % (0.0-3.0); HEMATOCRIT 43.2 % (36.0-47.0); HEMOGLOBIN 14.6 g/dl (12.0-15.5); LYMPH # 1.8 10^3/uL (1.5-5.0); LYMPH % 30.5 % (24.0-44.0); MEAN CORPUSCULAR HEMOGLOBIN 32.8 pg (27.0-33.0); MEAN CORPUSCULAR HGB CONC 33.8 g/dl (32.0-36.5); MEAN CORPUSCULAR VOLUME 97.1 fl (80.0-96.0); MONO # 0.6 10^3/uL (0.0-0.8); MONO % 10.2 % (2.0-8.0); NEUTROPHILS # 3.3 10^3/uL (1.5-8.5); NEUTROPHILS % 56.4 % (36.0-66.0); PLATELET COUNT, AUTOMATED 180 10^3/uL (150-450); RED BLOOD COUNT 4.45 10^6/uL (4.00-5.40); WHITE BLOOD COUNT 5.9 10^3/uL (4.0-10.0)
== END ==
LOC: M LAB 11:23
PROVIDERS: ATTEND Physician Assistant Medical
DX: R06.02 Shortness of breath (principal); J44.9 Chronic obstructive pulmonary disease, unspecified; J20.8 Acute bronchitis due to other specified organisms

== ENCOUNTER → 2023-11-09 | Outpatient (CLI) | payer MEDICARE, OTHER ==
[2023-11-09 10:21] LABS: HEMATOCRIT 44.4 % (36.0-47.0); HEMOGLOBIN 14.7 g/dl (12.0-15.5); MEAN CORPUSCULAR HGB CONC 33.1 g/dl (32.0-36.5); MEAN CORPUSCULAR VOLUME 99.6 fl (80.0-96.0); PLATELET COUNT, AUTOMATED 133 10^3/uL (150-450); RED BLOOD COUNT 4.46 10^6/uL (4.00-5.40); WHITE BLOOD COUNT 5.1 10^3/uL (4.0-10.0)
[2023-11-09 10:26] LABS: ALBUMIN 3.5 G/DL (3.2-5.2); ALKALINE PHOSPHATASE 79 U/L (46-116); ALT/SGPT 25 U/L (7.0-40); AST/SGOT 20 U/L (<34); BILIRUBIN,TOTAL 0.7 MG/DL (0.3-1.2); BLOOD UREA NITROGEN 11 MG/DL (9-23); CALCIUM LEVEL 9.4 MG/DL (8.3-10.6); CARBON DIOXIDE LEVEL 29 MMOL/L (20-31); CHLORIDE LEVEL 110 MMOL/L (98-107); CHOLESTEROL LEVEL 127 MG/DL (<200); CHOLESTEROL RISK RATIO 3.45 (<5); CREATININE FOR GFR 0.87 MG/DL (0.55-1.30); GLOMERULAR FILTRATION RATE > 60.0 (>39); GLUCOSE, FASTING 76 MG/DL (74-106); HDL CHOLESTEROL 36.8 MG/DL (>40); IRON (FE) 76 UG/DL (50-170); LDL CHOLESTEROL 66.4 MG/DL (<100); NON-HDL-C 90.2 MG/DL; PERCENT SATURATION 25.9 % (13.2-45.0); POTASSIUM SERUM 4.1 MMOL/L (3.5-5.1); SODIUM LEVEL 142 MMOL/L (136-145); TOTAL IRON BINDING CAPACITY 293 UG/DL (250-425); TOTAL PROTEIN 6.9 G/DL (5.7-8.2); TRIGLYCERIDES LEVEL 119 MG/DL (<150)
[2023-11-09 10:29] LABS: THYROID STIMULATING HORMONE 2.176 uIU/ML (0.55-4.78)
[2023-11-09 10:33] LABS: HEMOGLOBIN A1c 6.5 % (4.0-6.0)
[2023-11-09 10:46] LABS: CREATININE, URINE 130.1 MG/DL; MAU/CREAT RATIO 277.4 MCG/MG (0.0-30.0)
== END ==
LOC: M PLALAB 07:27
PROVIDERS: ATTEND Nurse Practitioner Adult Health
DX: Z00.01 Encounter for general adult medical examination with abnormal findings (principal); E11.9 Type 2 diabetes mellitus without complications; E78.2 Mixed hyperlipidemia; K76.0 Fatty (change of) liver, not elsewhere classified; E03.9 Hypothyroidism, unspecified; Z86.2 Personal history of diseases of the blood and blood-forming organs and certain disorders involving the immune mechanism

== ENCOUNTER 2023-12-06 12:38 | Emergency (ER) | payer MEDICARE, OTHER ==
[~2023-12-06] VITALS: Ht 172.7 cm; Wt 106.8 kg
[2023-12-06] MEDS ORDERED: ISOVUE-370 76% 100ML VIAL As Ordered ONE (13:33)
[2023-12-06 13:35] LABS: BASO % 0.7 % (0.0-1.0); EOS # 0.1 10^3/uL (0.0-0.5); HEMATOCRIT 44.6 % (36.0-47.0); HEMOGLOBIN 14.9 g/dl (12.0-15.5); MEAN CORPUSCULAR HEMOGLOBIN 32.5 pg (27.0-33.0); MEAN CORPUSCULAR HGB CONC 33.4 g/dl (32.0-36.5); MEAN CORPUSCULAR VOLUME 97.4 fl (80.0-96.0); MONO # 0.6 10^3/uL (0.0-0.8); NEUTROPHILS # 2.6 10^3/uL (1.5-8.5); NEUTROPHILS % 49.1 % (36.0-66.0); PLATELET COUNT, AUTOMATED 134 10^3/uL (150-450); RED BLOOD COUNT 4.58 10^6/uL (4.00-5.40); WHITE BLOOD COUNT 5.4 10^3/uL (4.0-10.0)
[2023-12-06 16:41] VITALS: BP 134/73; TEMP 97; O2SAT 95
== END 2023-12-06 16:50 | disposition home or self-care (01) ==
LOC: EDBD 12:38 → M ED 12:38
DX: S09.90XA Unspecified injury of head, initial encounter (principal); S40.012A Contusion of left shoulder, initial encounter; R91.1 Solitary pulmonary nodule; W17.89XA Other fall from one level to another, initial encounter; M19.012 Primary osteoarthritis, left shoulder; M75.32 Calcific tendinitis of left shoulder; J98.11 Atelectasis; K57.30 Diverticulosis of large intestine without perforation or abscess without bleeding; M50.122 Cervical disc disorder at C5-C6 level with radiculopathy; M25.78 Osteophyte, vertebrae; M43.12 Spondylolisthesis, cervical region; K21.9 Gastro-esophageal reflux disease without esophagitis; G47.33 Obstructive sleep apnea (adult) (pediatric); E78.5 Hyperlipidemia, unspecified; K76.0 Fatty (change of) liver, not elsewhere classified; E66.9 Obesity, unspecified; I25.2 Old myocardial infarction; E11.9 Type 2 diabetes mellitus without complications; F17.200 Nicotine dependence, unspecified, uncomplicated; Z86.79 Personal history of other diseases of the circulatory system; Z88.0 Allergy status to penicillin; Z88.6 Allergy status to analgesic agent; Z79.52 Long term (current) use of systemic steroids; Z79.02 Long term (current) use of antithrombotics/antiplatelets; Z79.899 Other long term (current) drug therapy; Y92.009 Unspecified place in unspecified non-institutional (private) residence as the place of occurrence of the external cause; Y93.89 Activity, other specified; Y99.9 Unspecified external cause status
CPT/HCPCS: 36415; 70450; 71260; 72125; 73030; 73200; 74177; 80047; 85025; 93041; 94760; 99285; Q9967

== ENCOUNTER → 2024-08-02 | Outpatient (CLI) | payer MEDICARE, OTHER ==
[2024-08-02 13:42] LABS: APPEARANCE, URINE CLEAR (CLEAR); BACTERIA, URINE AUTO 1+ (NEGATIVE); BILIRUBIN, URINE AUTO NEGATIVE (NEGATIVE); BLOOD, URINE BLOOD NEGATIVE (NEGATIVE); COLOR, URINE YELLOW (YELLOW); GLUCOSE, URINE (UA) AUTO NEGATIVE (NEGATIVE); KETONE, URINE AUTO NEGATIVE (NEGATIVE); LEUKOCYTE ESTERASE, URINE AUTO NEGATIVE (NEGATIVE); NITRITE, URINE AUTO NEGATIVE (NEGATIVE); PROTEIN, URINE AUTO NEGATIVE (NEGATIVE); RBC, URINE AUTO 0 /HPF (0-3); SPECIFIC GRAVITY URINE AUTO 1.004 (1.002-1.035); SQUAMOUS EPITHELIAL CELL UR AU 1 /HPF (0-6); UROBILINOGEN, URINE AUTO 0.2 mg/dL (0.0-2.0); WBC, URINE AUTO 1 /HPF (0-3)
[2024-08-02 14:26] LABS: ALBUMIN 3.8 G/DL (3.2-5.2); ALKALINE PHOSPHATASE 86 U/L (35-104); ALT/SGPT 26 U/L (7.0-40); AST/SGOT 29 U/L (<34); BILIRUBIN,TOTAL 0.6 MG/DL (0.3-1.2); BLOOD UREA NITROGEN 14 MG/DL (9-23); CALCIUM LEVEL 9.4 MG/DL (8.3-10.6); CARBON DIOXIDE LEVEL 26 MMOL/L (20-31); CHLORIDE LEVEL 106 MMOL/L (98-107); CREATININE FOR GFR 0.77 MG/DL (0.55-1.30); GLOMERULAR FILTRATION RATE > 60.0 (>39); GLUCOSE, FASTING 135 MG/DL (74-106); POTASSIUM SERUM 4.4 MMOL/L (3.5-5.1); SODIUM LEVEL 140 MMOL/L (136-145); TOTAL PROTEIN 7.7 G/DL (5.7-8.2)
[2024-08-02 14:28] LABS: FREE T4 1.31 NG/DL (0.89-1.76); THYROID STIMULATING HORMONE 1.517 uIU/ML (0.55-4.78)
[2024-08-02 14:29] LABS: BASO % 0.9 % (0.0-1.0); EOS # 0.1 10^3/uL (0.0-0.5); EOS % 1.7 % (0.0-3.0); HEMATOCRIT 45.3 % (36.0-47.0); HEMOGLOBIN 15.1 g/dl (12.0-15.5); LYMPH # 1.3 10^3/uL (1.5-5.0); MEAN CORPUSCULAR HEMOGLOBIN 33.3 pg (27.0-33.0); MEAN CORPUSCULAR HGB CONC 33.3 g/dl (32.0-36.5); MEAN CORPUSCULAR VOLUME 99.8 fl (80.0-96.0); MONO # 0.5 10^3/uL (0.0-0.8); MONO % 9.7 % (2.0-8.0); NEUTROPHILS # 2.8 10^3/uL (1.5-8.5); NEUTROPHILS % 60.5 % (36.0-66.0); PLATELET COUNT, AUTOMATED 146 10^3/uL (150-450); RED BLOOD COUNT 4.54 10^6/uL (4.00-5.40); WHITE BLOOD COUNT 4.7 10^3/uL (4.0-10.0)
== END ==
LOC: M PLALAB 09:44
DX: R39.9 Unspecified symptoms and signs involving the genitourinary system (principal); R55 Syncope and collapse; M25.512 Pain in left shoulder; M19.012 Primary osteoarthritis, left shoulder; Z79.899 Other long term (current) drug therapy

== ENCOUNTER → 2024-08-10 | Outpatient (CLI) | payer MEDICARE, OTHER | LOC: M CARPUL 17:14 | DX: R55 Syncope and collapse (principal); I36.1 Nonrheumatic tricuspid (valve) insufficiency ==

== ENCOUNTER → 2024-09-01 | Outpatient (CLI) | payer MEDICARE, OTHER | LOC: M RAD 12:48 | PROVIDERS: ATTEND Nurse Practitioner Adult Health | DX: M47.816 Spondylosis without myelopathy or radiculopathy, lumbar region (principal); M47.814 Spondylosis without myelopathy or radiculopathy, thoracic region; M47.812 Spondylosis without myelopathy or radiculopathy, cervical region ==

== ENCOUNTER → 2024-11-08 | Outpatient (CLI) | payer MEDICARE, OTHER | LOC: M RAD 16:53 | PROVIDERS: ATTEND Nurse Practitioner Adult Health | DX: K59.09 Other constipation (principal) ==

== ENCOUNTER → 2024-11-23 | Outpatient (CLI) | payer MEDICARE, OTHER ==
[2024-11-23 12:58] LABS: INR 1.01
[2024-11-23 13:15] LABS: ESTIMATED AVERAGE GLUCOSE 160.0 MG/DL (60-110)
[2024-11-23 13:17] LABS: ALT/SGPT 32.0 U/L (7.0-40); AST/SGOT 31.0 U/L (<34); CALCIUM LEVEL 9.5 MG/DL (8.3-10.6); CARBON DIOXIDE LEVEL 27.0 MMOL/L (20-31); CHLORIDE LEVEL 105.0 MMOL/L (98-107); CHOLESTEROL LEVEL 178.0 MG/DL (<200); CHOLESTEROL RISK RATIO 4.48 (<5); CREATININE FOR GFR 0.9 MG/DL (0.55-1.30); GLOMERULAR FILTRATION RATE 68.4 (>39); LDL CHOLESTEROL 114.1 MG/DL (<100); NON-HDL-C 138.3 MG/DL; POTASSIUM SERUM 4.1 MMOL/L (3.5-5.1); SODIUM LEVEL 141.0 MMOL/L (136-145); TRIGLYCERIDES LEVEL 121.0 MG/DL (<150)
[2024-11-23 13:18] LABS: FREE T4 1.39 NG/DL (0.89-1.76)
== END ==
LOC: M PLALAB 09:19
PROVIDERS: ATTEND Nurse Practitioner Adult Health
DX: K75.81 Nonalcoholic steatohepatitis (NASH) (principal); E74.39 Other disorders of intestinal carbohydrate absorption; E03.9 Hypothyroidism, unspecified; E78.2 Mixed hyperlipidemia; Z79.899 Other long term (current) drug therapy

== ENCOUNTER → 2024-12-14 | Outpatient (CLI) | payer MEDICARE, OTHER ==
[~2024-12-14] MED LIST changes: +ISOVUE-370 76% 100 ML VIAL As Ordered ONE
== END ==
LOC: M RAD 13:39
PROVIDERS: ATTEND Nurse Practitioner Adult Health
DX: K75.81 Nonalcoholic steatohepatitis (NASH) (principal); Z80.0 Family history of malignant neoplasm of digestive organs; R10.84 Generalized abdominal pain
CPT/HCPCS: 74170; Q9967

== ENCOUNTER → 2025-02-05 | Outpatient (REF) | payer MEDICARE, OTHER ==
[~2025-02-05] MED LIST changes: -IBUP-1022 PO; +IBUP600T42 PO; -ISOVUE-370 76% 100 ML VIAL As Ordered ONE
== END ==
LOC: M SFHCPLAZ 15:05
PROVIDERS: ATTEND Student in an Organized Health Care Education/Training Program
DX: J06.9 Acute upper respiratory infection, unspecified (principal)

== ENCOUNTER → 2025-02-05 | Outpatient (CLI) | payer MEDICARE, OTHER ==
[2025-02-05 18:36] LABS: BASO # 0.0 10^3/uL (0.0-0.2); BASO % 0.9 % (0.0-1.0); EOS # 0.1 10^3/uL (0.0-0.5); EOS % 1.6 % (0.0-3.0); LYMPH # 1.4 10^3/uL (1.5-5.0); LYMPH % 32.2 % (24.0-44.0); MONO # 0.5 10^3/uL (0.0-0.8); MONO % 11.7 % (2.0-8.0); NEUTROPHILS # 2.3 10^3/uL (1.5-8.5); NEUTROPHILS % 53.1 % (36.0-66.0); PLATELET COUNT, AUTOMATED 125 10^3/uL (150-450)
[2025-02-05 19:09] LABS: C REACTIVE PROTEIN QUANTITATIV < 0.50 MG/DL (<1.0)
== END ==
LOC: M PLALAB 15:31
PROVIDERS: ATTEND Student in an Organized Health Care Education/Training Program
DX: J18.9 Pneumonia, unspecified organism (principal)

== ENCOUNTER → 2025-02-12 | Outpatient (CLI) | payer MEDICARE, OTHER ==
[~2025-02-12] MED LIST changes: +ISOVUE-370 76% 100 ML VIAL As Ordered ONE
[2025-02-12 10:47] LABS: BASO # 0.0 10^3/uL (0.0-0.2); BASO % 0.6 % (0.0-1.0); EOS # 0.1 10^3/uL (0.0-0.5); EOS % 1.3 % (0.0-3.0); LYMPH # 1.3 10^3/uL (1.5-5.0); LYMPH % 27.4 % (24.0-44.0); MONO # 0.5 10^3/uL (0.0-0.8); MONO % 11.3 % (2.0-8.0); NEUTROPHILS # 2.8 10^3/uL (1.5-8.5); NEUTROPHILS % 59.0 % (36.0-66.0); PLATELET COUNT, AUTOMATED 133 10^3/uL (150-450)
[2025-02-12 11:16] LABS: C REACTIVE PROTEIN QUANTITATIV < 0.50 MG/DL (<1.0)
[2025-02-12 11:22] LABS: CALCIUM LEVEL 9.1 MG/DL (8.3-10.6); CARBON DIOXIDE LEVEL 29 MMOL/L (20-31); CHLORIDE LEVEL 104 MMOL/L (98-107); CREATININE FOR GFR 0.83 MG/DL (0.55-1.30); GLOMERULAR FILTRATION RATE 75.3 (>39); POTASSIUM SERUM 4.5 MMOL/L (3.5-5.1); SODIUM LEVEL 141 MMOL/L (136-145)
== END ==
LOC: M RAD 09:52
PROVIDERS: ATTEND Student in an Organized Health Care Education/Training Program
DX: J18.9 Pneumonia, unspecified organism (principal)
CPT/HCPCS: 36415; 71275; 80048; 82565; 85025; 85379; 86140; Q9967

== ENCOUNTER → 2025-02-21 | Outpatient (REF) | payer MEDICARE, OTHER ==
[~2025-02-21] MED LIST changes: -ISOVUE-370 76% 100 ML VIAL As Ordered ONE
== END ==
LOC: M SFHCPLAZ 12:57
PROVIDERS: ATTEND Nurse Practitioner Adult Health
DX: R09.89 Other specified symptoms and signs involving the circulatory and respiratory systems (principal)

== ENCOUNTER → 2025-04-02 | Outpatient (REF) | payer MEDICARE, OTHER | LOC: M SFHCPLAZ 14:55 | PROVIDERS: ATTEND Nurse Practitioner Adult Health | DX: R09.89 Other specified symptoms and signs involving the circulatory and respiratory systems (principal) ==